=== PATIENT | female | born 1985 | race Caucasian/White ===

== ENCOUNTER 2021-08-04 18:13 | Emergency (ER) | payer OTHER, SELFPAY ==
[2021-08-04 18:20] VITALS: BP 153/108; PULSE 88; RESP 20; TEMP 36.9; O2SAT 100
--- NOTE | 2021-08-04 19:26 | ED.EYEPROB ---
HPI - Eye Problem General Chief complaint: Eye Problems Stated complaint: Eye Pain Time Seen by Provider: 08/04/21 19:07 Source: patient and RN notes reviewed Mode of arrival: ambulatory Limitations: no limitations History of Present Illness HPI Narrative: Patient presents today complaining of right eye photophobia, increased tearing, redness, burning. She woke up yesterday with a foreign body sensation and burning. She believes that she may have an infection from her contact. She does have contacts that she can leave in for 30 days. States her current symptoms are similar to when she had an infection in the past. She currently denies any vision changes, but states she just cannot see because her contacts are not in and she is not wearing her glasses. Denies any purulent discharge. Related Data Allergies Allergy/AdvReac Type Severity Reaction Status Date / Time No Known Allergies Allergy Mild Verified 08/04/21 18:35 Review of Systems Review of Systems: CONSTITUTIONAL: Denies body aches, fever, chills, or sweats. EYES: Denies visual changes, or discharge. + Right eye redness, burning, photophobia, increased tearing ENT: Denies rhinorrhea, congestion, sore throat, or otalgia. CARDIOVASCULAR: Denies chest pain, palpitations, or edema. RESPIRATORY: Denies cough or dyspnea. GASTROINTESTINAL: Denies abdominal pain, nausea, vomiting, or diarrhea. GENITOURINARY: Denies dysuria or hematuria. SKIN: Denies rash, itching, or wounds. MUSCULOSKELETAL: Denies back pain, joint pain, or myalgia. NEUROLOGIC: Denies headache, numbness, tingling, or weakness. PSYCH: Denies depression or anxiety. PMFSH Comments At time of signature, I have reviewed and agree with nursing past medical, surgical, social and family history unless otherwise noted. Please see nursing chart for further information. There is no relevant family history pertinent to the presenting complaint Exam Narrative: GENERAL: Well-appearing, well-nourished, and in no acute distress. HEAD: Normocephalic, atraumatic. EYES: EOMI. PERRL. Right eye: Severely injected conjunctiva. Swollen conjunctiva. No fluorescein uptake. See procedure note. No active drainage, but increased tearing. Left eye normal. ENT: Mucous membranes pink and moist. NECK: Normal AROM. CHEST: No respiratory distress. EXTREMITIES: Normal range of motion. No edema. SKIN: Warm, dry, no rash. Capillary refill normal. Normal skin turgor. NEURO: No focal deficits. Alert and oriented x3. Gait steady. PSYCH: Normal affect. No signs of depression or anxiety. Course Vital Signs Vital signs: Vital Signs Temperature 98.4 F 08/04/21 18:20 Pulse Rate 88 08/04/21 18:20 Respiratory Rate 20 08/04/21 18:20 Blood Pressure 153/108 H 08/04/21 18:20 Pulse Oximetry 100 08/04/21 18:20 Temperature 98.4 F 08/04/21 18:20 Pulse Rate 88 08/04/21 18:20 Respiratory Rate 20 08/04/21 18:20 Blood Pressure 153/108 H 08/04/21 18:20 Pulse Oximetry 100 08/04/21 18:20 Reviewed. Pt has been instructed to follow up with her PCP regarding her elevated blood pressure today. Procedures Other Procedure Procedure 1: Other Procedure: Right eye was anesthetized with 1 drop of tetracaine and anesthesia was achieved. The eye was flushed with eye wash. Lid was inverted and examined. Moistened Qtip was used to sweep underneath the upper eyelid with 0 foreign bodies resulting. Cornea was dyed with fluorescein and 0 abrasions or ulcerations were noted. Pt tolerated procedure well. MDM - Eye Problem Differential Diagnosis Differential diagnosis: Likely corneal abrasion, conjunctivitis, periorbital cellulitis and corneal ulcer Critical Care Time Critical Care Time Critical Care Time: No Discharge Plan Discharge Clinical Impression: Bacterial conjunctivitis Patient Disposition: Home, Self-Care Condition: Stable Instructions: Antibiotic Form Additional Instructions: Your co
== END 2021-08-04 19:43 | disposition home or self-care (01) ==
PROVIDERS: Emergency Provider Nurse Practitioner
DX: H10.9 Unspecified conjunctivitis (principal); I10 Essential (primary) hypertension
CPT/HCPCS: 99213; A9270; G0463

== ENCOUNTER 2022-01-02 17:22 | Emergency (ER) | payer OTHER, SELFPAY ==
[2022-01-02 17:26] VITALS: BP 171/105; PULSE 115; RESP 18; TEMP 36.7; O2SAT 98
--- NOTE | 2022-01-02 17:26 | ED.SKABFB ---
HPI - Skin/Abscess/Foreign Bdy General Chief complaint: Skin/Abscess/Foreign Body Stated complaint: Skin Problem Time Seen by Provider: 01/02/22 17:26 Source: patient and RN notes reviewed History of Present Illness HPI narrative: Patient is a 36-year-old female who presents the urgent care with complaints of an abscess to the left vaginal region. Patient states she noticed it 2 days ago. Patient states that she does shave the vaginal area however has not had issues with labial abscesses in the past. Patient states she has been putting [id number] numbing cream on the area. Denies of any fever, chills, nausea or vomiting. No other complaints. No acute distress noted. Patient aware of the plan of care. Some parts of this dictation were generated by voice recognition software and may contain typographical and/or grammatical inaccuracies. Related Data Allergies Allergy/AdvReac Type Severity Reaction Status Date / Time No Known Allergies Allergy Mild Verified 01/02/22 17:37 Review of Systems Review of Systems: CONSTITUTIONAL: Denies fever, chills, or sweats. EYES: Denies visual changes, redness, or discharge. ENT: Denies rhinorrhea, congestion, sore throat, or otalgia. CARDIOVASCULAR: Denies chest pain, palpitations, or edema. RESPIRATORY: Denies cough or dyspnea. GASTROINTESTINAL: Denies abdominal pain, nausea, vomiting, or diarrhea. GENITOURINARY: Denies dysuria or hematuria. SKIN: Reports of an abscess to the vaginal region MUSCULOSKELETAL: Denies back pain, joint pain, or myalgia. NEUROLOGIC: Denies headache, numbness, or weakness. All other systems reviewed are negative, except as documented in HPI. PMFSH Comments At the time of my signature, I reviewed and agree with the nursing past medical, surgical, social, and family history. There is no relevant family history pertinent to the patient complaint. Exam Narrative: GENERAL: This is a well-nourished, well-developed patient, in no apparent distress. HEAD: normocephalic, atraumatic. EYES: PERRL. Sclera clear/white. Vision is grossly intact. EARS: External ears normal NOSE: External nose normal with no obvious nasal discharge, nares without redness, no rhinorrhea. THROAT: Mucous membranes moist NECK: Neck supple, : 3 x 2 erythemic mildly edematous Bartholin cyst to the left labia with moderate tenderness and scant yellow serosanguineous drainage. SKIN: warm, intact with no suspicious lesions or rash, good texture and turgor. NEURO: awake, alert, and oriented to person, place and time. There were no obvious focal neurologic abnormalities. EXTREMITIES: No clubbing, cyanosis, or edema. Course Course Level of Care: Express Care Visit Vital Signs Vital signs: Vital Signs Temperature 98.1 F 01/02/22 17:26 Pulse Rate 115 H 01/02/22 17:26 Respiratory Rate 18 01/02/22 17:26 Blood Pressure 171/105 H 01/02/22 17:26 Pulse Oximetry 98 01/02/22 17: Temperature 98.1 F 01/02/22 17:26 Pulse Rate 115 H 01/02/22 17:26 Respiratory Rate 18 01/02/22 17:26 Blood Pressure 171/105 H 01/02/22 17:26 Pulse Oximetry 98 01/02/22 17:26 Reviewed-patient is informed that they may have pre-hypertension or hypertension based on a blood pressure reading in the department. I recommend the patient call the primary care provider listed on their discharge instructions or a physician of their choice this week to arrange follow-up for further evaluation of possible pre-hypertension or hypertension. MDM - Skin/Abscess/Foreign Bdy MDM Narrative Medical decision making narrative: Advised the patient to complete the oral antibiotic regimen as prescribed. Be sure to eat and drink with the medication. Use a warm compress. It appears to be draining on its own. Use the prescription cream to the affected area avoiding inside the vagina. Do not use any lidocaine directly over the infectious area. It could cause increased burning sensations. May be warm Epson salt baths.
== END 2022-01-02 17:45 | disposition home or self-care (01) ==
PROVIDERS: Emergency Provider Nurse Practitioner Family
DX: N75.1 Abscess of Bartholin's gland (principal); I10 Essential (primary) hypertension
CPT/HCPCS: 99213; G0463

== ENCOUNTER 2023-07-28 15:57 | Emergency (ER) | payer OTHER, SELFPAY ==
--- NOTE | 2023-07-28 16:03 | ED.EAR ---
HPI - Ear Problem General Chief complaint: Skin/Abscess/Foreign Body Stated complaint: ear pain into jaw Time Seen by Provider: 07/28/23 16:16 Source: patient and RN notes reviewed Mode of arrival: ambulatory Limitations: no limitations History of Present Illness HPI Narrative: 37-year-old female presents with concern for right ear pain and a red tender spot on her right leg. She reports both of these symptoms started this morning. She denies drainage from the ear. She denies upper respiratory infection symptoms. Denies fever, body aches, chills, sweats MD Complaint: ear pain and other (Red spot leg) Related Data Allergies Allergy/AdvReac Type Severity Reaction Status Date / Time No Known Allergies Allergy Mild Verified 07/28/23 16:18 Review of Systems Review of Systems: CONSTITUTIONAL: Denies malaise, chills, sweats, or fever. EYES: Denies visual changes, redness, or discharge. ENT: Denies rhinorrhea, congestion, sinus pain, and sore throat. Reports right ear pain CARDIOVASCULAR: Denies chest pain, palpitations, or edema. RESPIRATORY: Denies cough. Denies dyspnea. GASTROINTESTINAL: Denies abdominal pain, nausea, vomiting, diarrhea SKIN: Denies rash or itching. Reports red tender area on the right leg MUSCULOSKELETAL: Denies myalgia. NEUROLOGIC: Denies headache. All systems reviewed & are unremarkable except as noted in HPI and below PMFSH Comments At time of signature, agree with nursing past medical, surgical, social and family history. There is no relevant family history pertinent to the presenting complaint Exam Narrative: GENERAL: Well-appearing, well-nourished, and in no acute distress. HEAD: Normocephalic EYES: PERRLA, conjunctivae clear ENT: Nares clear, turbinates edematous, clear discharge. Mucous membranes moist. TM pearly eldridge with sharp light reflex bilaterally; right tragal tenderness with EAC erythema and edema. No postauricular erythema, edema noted. NECK: Supple. No lymphadenopathy CHEST: Clear to auscultation, breath sounds equal. No wheezing, rhonchi, rales, or stridor. No respiratory distress, speaks in full sentences. HEART: Regular rate and rhythm. No murmur heard. SKIN: Warm, dry, no rash. Approximately 4 cm in diameter area of erythema, edema, induration without fluctuation noted to the right thigh NEURO: Alert and oriented x3. PSYCH: Normal mood and affect Course Course Emergency Course: Patient is aware of diagnosis, understands and agrees to treatment plan. Anticipatory guidance given. Patient agrees to follow-up as directed and is aware of reasons to seek care at the emergency department. Portions of this record may have been created with voice recognition software Level of Care: Express Care Visit Vital Signs Vital signs: Reviewed. Medical Decision Making MDM Narrative Medical decision making narrative: Differential diagnosis considered: Lee virus, strep pharyngitis, allergic rhinitis, upper respiratory tract infection, sinusitis, rhinosinusitis, nasopharyngitis. viral pharyngitis, otitis media, otitis externa, otitis effusion, cerumen impaction, foreign body, mastoiditis. Exam findings show no acute concerns or changes; patient is non-toxic appearing and is in no distress. Patient is appropriate for outpatient treatment and follow-up. Patient's symptoms are not at this time consistent with mastoiditis, however given the postauricular pain patient was advised to follow-up with her primary or go to the ER symptoms worsen or do not improve Does not appear at this time to be erythema multiforme, bullous, SJS, TEN; no evidence at this time to suggest RMSF, NSTI, endocarditis or Lyme disease; patient looks well, nontoxic and is tolerating oral intake; no neurologic signs or symptoms; no headache, photophobia or neck pain; afebrile. Patient does not have history of of penetrating trauma, laceration, blunt trauma, recent surgery, immunosuppression, malignancy, obesity, alcoholism,
[2023-07-28 16:06] VITALS: BP 137/104; PULSE 106; RESP 18; TEMP 37.7; O2SAT 100
[2023-07-28 16:30] VITALS: BP 130/90
== END 2023-07-28 16:30 | disposition home or self-care (01) ==
PROVIDERS: Emergency Provider Nurse Practitioner; PCP Nurse Practitioner Family
DX: H66.91 Otitis media, unspecified, right ear (principal); L03.115 Cellulitis of right lower limb; I10 Essential (primary) hypertension; H26.9 Unspecified cataract
CPT/HCPCS: 99213; G0463

== ENCOUNTER 2025-03-08 19:57 | Emergency (ER) | payer OTHER, SELFPAY ==
--- OUTSIDE RECORDS SUMMARY | 2025-03-08 19:59 | XMS_ITS | Referral Summary ---
Author Organization [facility] Address [address] [place] [address] Care Team Providers Care Canal Superintendent Name Role Phone Unknown, Notinfile Primary Care Provider Unavail able Kesha Stock NATIONAL SALES REPRESENTATIVE Unavailable [phone] Encounters Date Type Department Care Team Description 12/12/2024 Telephone [facility] Ophthalmology [address] [place] [phone] Mey Steele MD 12/12/2024 2:40 PM CDT Office Visit [facility] Ophthalmology [address] [place] [phone] Mey Steele MD Other secondary cataract of both eyes; Posterior subcapsular age-related cataract from Last 3 Months Allergies No known active allergies Medications prednisoLONE acetate (PRED FORTE) 1 % ophthalmic suspension Administer 1 drop into the right eye 4 (four) times a day 5 mL 11 3 Active Active Problems Problem Noted Date Diagnosed Date Right retinal detachment 03/11/2023 Assessment & Plan (06/16/2023 1:36 PM CDT): One week status post pars plana vitrectomy (PPV)/endolaser (EL)/Gas to the right eye. Doing well. Shield operated eye, Tobramycin 4x/day, and Predforte 4x/day Return to clinic in one week. Signs and symptoms of retinal detachment, tears and endophthalmitis, elevated pressure reviewed with patient. Post Op Position:Left side down. Altitude precautions were reviewed with patient. No strenuous activity. Heroin use disorder, severe 03/10/2023 06/0 04/2023 Obesity (BMI 30.0-34.9) 03/10/2023 03/10/20 Bilateral retinal detachment 03/03/2023 Overview (03/03/2023): -Onset blurry vision OS>OD ~4 years ago -History of drug use, attended rehab and noticed blurry vision upon completion -OCT mac obtained today- mac off RD OU -Pt denies any active symptoms including FOL or new floaters Assessment & Plan (05/31/2024 5:09 PM CDT): S/p PPV/EL/FAx/C3F8 OS 04/16/23 S/p PPV/EL/FAx/C3F8 OD 06/10/23 LTFU since 06/2023. Retina attached OU with good laser scars. Has significant PSC OS > OD and interested in CE. Will send for eval, discussed possible limited visual potential given hx of RD. Assessment & Plan (06/11/2023 12:13 PM CDT): Status post (s/p) pars plana vitrectomy (PPV) laser gas doing well POD 1 Drops (gtts) instructions given ER warnings Assessment & Plan (06/09/2023 4:03 PM CDT): POM1 left eye (OS) pars plana vitrectomy (PPV)/ endolaser (EL)/ Gas- doing well, attached 360. Right eye (OD): More bullous with prominent macula involvement. No clear breaks identified. She had macula involvement when we first saw her as well per OCT from 03/03/23. Will schedule for: Right Eye: Pars plana vitrectomy (PPV)/ endolaser (EL)/ Gas Nita/Therese 90 minutes [place] General Assessment & Plan (04/21/2023 4:49 PM CDT): One week status post pars plana vitrectomy (PPV)/ endolaser (EL)/ 14% C3F8 to the left eye. Doing well. Shield operated eye, Stop Tobramycin, and Taper pred forte (PF) by reducing it by one drop a day each week Return to clinic in one month. Signs and symptoms of retinal detachment, tears and endophthalmitis, elevated pressure reviewed with patient. Post Op Position:Face Down. Altitude precautions were reviewed with patient. No strenuous activity. Assessment & Plan (04/17/2023 10:22 AM CDT): One day status post pars plana vitrectomy (PPV)/ endolaser (EL)/ 14% C3F8 to the left eye. Doing well. Shield operated eye, Tobramycin 4x/day, and Predforte 4x/day Return to clinic in one week. Signs and symptoms of retinal detachment, tears and endophthalmitis, elevated pressure reviewed with patient. Post Op Position:Face Down. Altitude precautions were reviewed with patient. No strenuous activity. Assessment & Plan (03/10/2023 4:02 PM CDT): Bilateral retinal detachment (RD) both eyes (OU)--> right eye (OD) mac-involving but better vision, left eye (OS) near total retinal detachment (RD) with worse vision. Unclear how long this has been present for- patient feels things got really bad in last 6 months. No clear breaks identified both eyes (OU), though possibly small hole right eye (OD). No inflammation on exam to think exudative process, no other medical conditions other than HTN, and history apppears unremarkable for uveitic process. Likely myopic, though no lattice on exam, but patient wears contacts but she is unsure her prescription. No mass on exam both eyes (OU) on b-scan as well. We will schedule for: Right eye first (pt preference plus better vision) pars plana vitrectomy (PPV)/ Scleral buckle/ endolaser/ Gas vs. Oil Moya/ Attending (ad or tung) 120 minutes General [place] Assessment & Plan (03/03/2023 11:01 AM CDT): Educated patient. Discussed guarded prognosis for vision following repair due to chronicity. Consulted Dr. Moya (retina fellow), schedule pt in [facility] next Saturday 03/10. Posterior subcapsular age-related cataract 03/03 Assessment & Plan (12/12/2024 6:47 PM CDT): >>ASSESSMENT AND PLAN FOR SECONDARY CATARACT WRITTEN ON 03/03/2023 11:01 AM BY SOLOMON DAVIS, OD Educated patient, will further evaluate following retina consult/treatment. Assessment & Plan (12/12/2024 6:59 PM CDT): Cataract Pre-Op Note HPI: Nancy Mckinney is a 39 y.o. y/o female who presents for cataract evaluation. They have noticed progressive loss of vision over the last few years, and feel that surgery would help enhance vision & quality of life. Ocular ROS: Glare Yes Halos No Trouble driving Yes - does not drive Trouble reading Yes All other ROS negative unless noted in HPI. Active ocular issues: S/p PPV/EL/FAx/C3F8 OS 04/16/23 S/p PPV/EL/FAx/C3F8 OD 06/10/23 Ocular History: Amblyopia Unknown - left eye was weaker eye as a child, does not recall patching or age at which she started wearing glasses Vitrectomy Yes Scleral buckle No Intravitreal Injections No Laser refractive surgery No History of ocular trauma No History of eye infection No Medical History: Past Medical History: Diagnosis Date Migraines Obesity Tobacco dependence Medical ROS: Angina present? No Cough or orthopnea? No Dyspnea on exertion? No Has sleep apnea/wears CPAP? No Patient is able to lie flat for at least 1 hour Yes Current medications: Systemic medications per EMR Flowmax/Hytrin No Coumadin/Plavix No Allergies: No Known Allergies Latex allergy: No Cataract specific exam findings: Prominent brow No Dense arcus No K spindle No [place]e No PXE material No TIDs No Phacodonesis No Posterior synechiae No L/I step off No Mature/white No Dominant Eye: the right eye Dilates to: OD 8 mm OS 8 mm Tolerates gonioscopy: good Assessment and Plan 1. Visually Significant Cataract of both eyes - Patient interested in having CE/IOL of the left eye - R/B/A of surgery discussed with patient and/or presented in writing, including complications that may require additional surgeries or other procedures such as retained lens fragment, inability to place a lens implant at the time of surgery, prolonged inflammation, macular edema, corneal edema/decompensation, intraocular pressure abnormalities, diplopia, ptosis. Reviewed possible complications that might result in permanent loss of vision or the eye, including infection, hemorrhage, and retinal tear/detachment. Reviewed risks of anesthesia. - Additional risks discussed included: very limited vision potential due to bilateral retinal detachments. Notable difference in axial length of both eyes, possible history of amblyopia though patient recalls left eye was weaker as a child and left eye is less myopic on today's measurements. She is currently unable to do much of her daily tasks due to her vision, even with contact lens wear. - The patient understands these risks and wishes to proceed. - Target refraction was discussed with the patient. We discussed near, distance, and monovision; we also discussed multifocal and toric lenses. The patient elected to target plano, monofocal. - Best phone number at which to reach patient: [phone] - Patient was wearing her contact lenses to appointment today. Will need to return for testing-only visit after 5 day contact lens holiday. Will schedule surgery following that visit. Acute conjunctivitis of both eyes 10/14/2019 Lacrimation, bilateral 10/14/2019 Acute bronchitis 10/25/2017 Acute maxillary sinusitis 10/25/2017 Acute bronchospasm 10/25/2017 Anxiety 11/05/2016 03/10/2023 Common bile duct dilatation 11/05/2016 06/04/2023 Heroin addiction 11/05/2016 03/10/2023 VAZQUEZ (nonalcoholic steatohepatitis) 11/05/2016 03/10/2023 Immunizations Immunization Administration Dates Next Due Influenza, Trivalent, IM (MDV) 07/23/2014 Social History Tobacco Use Types Packs/Day Years Used Date Smoking Tobacco: Every Day Cigarettes 1 21.4 Started: 2003 Smokeless Tobacco: Never Tobacco Cessation:Ready to Q uit: Not Asked; Counseling Given: Not Answered Alcohol Use Standard Drinks/Week Comments Never 0 (1 standard drink = 0.6 oz pur e alcohol) AUDIT-C Answer Date Recorded Frequency of Alcohol Consumption Never 10/14/2019 Average Number of Drinks Not on file 020 Frequency of Binge Drinking Not on file 10/04 Personal Safety Answer Date Recorded Have you ever been in or are you currently in a harmful physical or emotional relationship or is someone making you feel afraid or unsafe? 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 Gender Identity Not on file Sexual Orientation Not on file Last Filed Vital Signs Vital Sign Reading Time Taken Comments Blood Pressure 125/101 06/08/2024 11:30 PM CDT Pulse 79 06/08/2024 11:30 PM CDT Temperature 36.6 C (97.8 F) 06/08/2024 9:16 PM CDT Respiratory Rate 18 06/08/2024 11:30 PM CDT Oxygen Saturation 100% 06/08/2024 11:30 PM CDT Inhaled Oxygen Concentration - - Weight 88.9 kg (196 lb) 06/08/2024 9:16 PM CDT Height 162.6 cm (5' 4) 03/11/2023 10:15 AM CDT Body Mass Index 33.64 03/11/2023 10:15 AM CDT Plan of Treatment Not on file Procedures Procedure Name Priority Date/Time Associated Diagnosis Comments IOL BIOMETRY - OU - BOTH EYES Routine 12/12/2024 2:40 PM CDT Other secondary cataract of both eyes from Last 3 Months Results * IOL Biometry - OU - Both Eyes (12/12/2024 2:40 PM CDT) Anatomical Region Laterality Modality Head Ophthalmic Axial Measurements Narrative 01/04/2025 11:43 AM CDT Will repeat follow contact lens holiday Mey Steele MD OPHTH ULTRASOUND Fi nal Result from Last 3 Months Insurance [facility] Member Subscriber Plan / Payer (Ef fective 2019-Present) Name:Nancy Mckinney Relation to Subscriber:Self Name:Nancy Mckinney Payer ID:[id number] (NAIC) Type:MEDICAID RISK OTHER Address: [address] [place] [id number] [facility] Member Subscriber Plan / Payer (Ef fective 2021-Present) Name:Nancy Mckinney Relation to Subscriber:Self Name:Nancy Mckinney Payer ID:[id number] (NAIC) Type:MEDICAID RISK OTHER Address: [address] [place] [id number] [facility] Member Subscriber Plan / Payer (Ef fective 2021-Present) Name:Nancy Mckinney Relation to Subscriber:Self Name:Nancy Mckinney Payer ID:[id number] (NAIC) Type:MEDICAID RISK OTHER Address: [address] [place] [id number] Care Teams Canal Superintendent Relationship Specialty Start Date End Date Unknown, Notinfile PCP - General 06/08/24 Kesha Stock NP [phone] [place] [address] Nurse Practitioner 06/08/24
--- OUTSIDE RECORDS SUMMARY | 2025-03-08 19:59 | XMS_ITS | Clinical Summary ---
Author Organization [facility] Address [address] [place] [address] Care Team Providers Care Hand Model Name Role Phone Unavailable Primary Care Provider Unavailabl e Source Comments [facility],non-owned Affiliates and Associated Physician Practices is amultiple site organization consisting of ambulatory clinics and hospital sitesin [place], [place], [place] and [place]. This disclosure is being madepursuant to the Care Everywhere program and may not contain all information available regarding this patient. Last updated 18.[facility] Social History Tobacco Use Types Packs/Day Years Used Date Smoking Tobacco: Never Assessed Comments Unknown Sex and Gender Information Value Date Recorded Sex Assigned at Not on file Legal Sex Female 7:57 AM ELECTRICAL LINEWORKER Gender Identity Not on file Sexual Orientation Not on file Last Filed Vital Signs Vital Sign Reading Time Taken Comments Blood Pressure 138/102 11/06/2016 12:10 PM ELECTRICAL LINEWORKER Pulse 58 11/06/2016 12:10 PM ELECTRICAL LINEWORKER Temperature 36.4 C (97.6 F) 11/06/2016 12:10 PM ELECTRICAL LINEWORKER Respiratory Rate 18 11/06/2016 12:10 PM ELECTRICAL LINEWORKER Oxygen Saturation 100% 11/06/2016 12:10 PM ELECTRICAL LINEWORKER Inhaled Oxygen Concentration - - Weight 93 kg (205 lb) 11/05/2016 10:03 PM ELECTRICAL LINEWORKER Height 162.6 cm (5' 4) 11/05/2016 10:03 PM ELECTRICAL LINEWORKER Body Mass Index 35.19 11/05/2016 10:03 PM ELECTRICAL LINEWORKER Plan of Treatment Health Maintenance Due Date Last Done Comments HIV SCREENING 2001 HEPATITIS C SCREENING 08/21/2004 DTAP/TDAP/TD VACCINES (1 - Tdap) 2005 HEPATITIS B VACCINE (1 of 3 - 19+ 3-dose series) 2005 COVID-19 VACCINE (1 - 2023-2 5 season) 2024 DEPRESSION SCREENING 10/04/2024 INFLUENZA VACCINE (Season Ended) 2025 ZOSTER VACCINE (1 of 2) 2036 HIB VACCINE Aged Out No longer eligi ble based on patient's age to complete this topic HPV VACCINE Aged Out No longer eligi ble based on patient's age to complete this topic MENINGOCOCCAL (Group B) VACC INE SHARED DECISION-MAKING Aged Out No longer eligibl e based on patient's age to complete this topic MENINGOCOCCAL GROUPS A/C/Y/W VACCINE Aged Out No longer eligible b ased on patient's age to complete this topic PNEUMOCOCCAL VACCINE Aged Out No long er eligible based on patient's age to complete this topic Insurance [facility] [place] [address] [place] [address] MEDICAID - OUT OF [facility]
--- OUTSIDE RECORDS SUMMARY | 2025-03-08 19:59 | XMS_ITS | Clinical Summary ---
Author Organization [facility] Address [address] [place] [address] Care Team Providers Care Manager Law Name Role Phone Unknown, Notinfile Primary Care Provider Unavail able Kesah Stock QUALITY CONTROL CHEMIST Unavailable [phone] Allergies No known active allergies Medications prednisoLONE [...] 06/0 04/2023 Obesity (BMI 30.0-34.9) 03/10/2023 03/10/20 23 Bilateral retinal detachment 03/03/2023 Overview (03/03/2023): -Onset [...] Pars plana vitrectomy (PPV)/ endolaser (EL)/ Gas Nita/Apte 90 minutes Phakic General Assessment & Plan [...] (PPV)/ Scleral buckle/ endolaser/ Gas vs. Oil Nita/ Attending (ad or tung) 120 minutes General Phakic Assessment & Plan (03/03/2023 11:01 AM CDT): Educated patient. Discussed guarded prognosis for vision following repair due to chronicity. Consulted Dr. Moya (retina fellow), schedule pt in [facility] next Saturday 03/10. 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-related cataract 12/12/2024 Telephone [facility] Ophthalmology [address] [place] [address] [phone] Mey Steele MD from Last 3 Months Immunizations Immunization Administration Dates Next Due Influenza, Trivalent, IM (MDV) 07/23/2014 Surgical History Surgery Date Site/Laterality Comments TUBAL LIGATION 10/04/2011 - 10/03/2012 Bilateral VITRECTOMY 04/15/2023 Left Medical History Medical History Date Comments Tobacco dependence Obesity Migraines Family History Medical History Relation Name Comments Heart disease Mother Relation Name Status Comments Mother Social History Tobacco Use Types Packs/Day Years [...] on file Legal 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 Gender Identity Not on file Sexual Orientation Not on file Obstetrics History Para Term AB IAB SAB Ectopic Multiple Livin g Live Births 1 Date Outcome GA Total Labor Labor/2nd/3rd Weight Sex Type Anes PTL Kelsey A1 A5 Name Clin Last Filed Vital Signs Vital Sign Reading [...] 03/11/2023 10:15 AM CDT Plan of Treatment Health Maintenance Due Date Last Done Comments Cervical Cancer Screening 1986 Depression Screening 1986 Hepatitis C Screening 1986 DTaP/Tdap/Td Vaccine (1 - Tdap) 1997 Varicella Vaccines (1 of 2 - 13+ 2-dose series) 1999 Hepatitis B Screening 2004 Regular Well Visit/Exam 18-64 2004 Pneumococcal vaccine <65 (1 of 2 - PCV) 2005 Influenza Vaccine (Season Ended) 2025 10/21/2022, 07/23/2014 HPV Vaccines Aged Out No longer eligi ble based on patient's age to complete this topic Procedures Procedure Name Priority Date/Time Associated Diagnosis [...] nal Result from Last 3 Months Insurance [facility] Care Teams Manager Law Relationship Specialty Start Date End Date Unknown, Notinfile PCP - General 06/08/24 Kesha Stock NP [address] [place] [id number] Nurse Practitioner 06/08/24
--- OUTSIDE RECORDS SUMMARY | 2025-03-08 19:59 | XMS_ITS | Clinical Summary ---
Author Organization [facility] Address [address] [place] [address] Phone Care Team Providers Care Middle [employer] French Teacher Name Role Phone Kesha Stock APRN, [employer] Unavailable [phone] Provider, None Primary Care Provider Unavailabl e Allergies No known active allergies Medications nicotine (NICODERM CQ) 14 MG/24HR PATCH 24 HR 1 Patch by Transdermal route every 24 hours. 30 Patch 3 Active atenolol (TENORMIN) 50 MG Tablet Take 1 Tablet by mouth daily. 90 Tablet 3 3 Active traMADol (ULTRAM) 50 MG TabletIndicatio ns:Contusion of left thumb Take 1 Tablet by mouth every 8 hours as needed for Moderate or more severe pain. 12 Tablet 4 Active dexamethasone (Decadron) 4 MG Tablet Take 1 Tablet by mouth 2 times daily. 10 Tablet 5 Active Benzonatate 200 MG Capsule Take 1 Capsule by mouth 3 times daily as needed for Cough for up to 14 days. 42 Capsule 5 02/28/20 25 Active Problems Problem Noted Date Diagnosed Date Common bile duct dilatation 11/05/2016 Anxiety 11/05/2016 VAZQUEZ (nonalcoholic steatohepatitis) 11/05/2016 Heroin addiction 11/05/2016 Resolved Problems Problem Noted Date Diagnosed Date Resolved Date Sepsis (<HCC>) 11/05/2016 10/21/2022 Left arm cellulitis 11/05/2016 10/21/19 23 Fatty liver 11/05/2016 11/05/2016 Hypokalemia 11/05/2016 10/21/2022 Encounters Date Type Department Care Team Description 02/13/2025 10:30 PM CDT - 02/13/2025 10:52 PM CDT Emergency [facility] Emergency [address] [facility] [place] [address] Pasha Rodriguez, PAC COVID-19 Discharge Disposition: Discharged to home or Selfcare 02/13/2025 Travel from Last 3 Months Immunizations Immunization Administration Dates Next Due Influenza Vaccine, Quadrivalent, PF 10/21/2022 Family History Medical History Relation Name Comments Hypertension Brother Hypertension Father Relation Name Status Comments Brother Father Social History Tobacco Use Types Packs/Day Years Used Date Smoking Tobacco: Every Day Cigarettes 1 8 Smokeless Tobacco: Never Tobacco Cessation:Ready to Q uit: No; Counseling Given: No Alcohol Use Standard Drinks/Week Comments No 0 (1 standard drink = 0.6 oz pur e alcohol) Comments No Sex and Gender Information Value Date Recorded Sex Assigned at Female 09/19/2024 7:10 PM MEDIA EXECUTIVE Legal Sex Female 9:55 PM CDT Gender Identity Female 09/19/2024 7:10 PM MEDIA EXECUTIVE Sexual Orientation Not on file Last Filed Vital Signs Vital Sign Reading Time Taken Comments Blood Pressure 132/99 02/13/2025 10:46 PM CDT Pulse 110 02/13/2025 10:46 PM CDT Temperature 38.8 C (101.9 F) 02/13/2025 10:46 PM CDT Respiratory Rate 20 02/13/2025 10:46 PM CDT Oxygen Saturation 99% 02/13/2025 10:46 PM CDT Inhaled Oxygen Concentration - - Weight 95.3 kg (210 lb) 02/13/2025 9:22 PM CDT Height 162.6 cm (5' 4) 02/13/2025 9:22 PM CDT Body Mass Index 36.05 02/13/2025 9:22 PM CDT Plan of Treatment Health Maintenance Due Date Last Done Comments Hepatitis C Virus (HCV) Screening 1986 TdaP Immunization 1986 Hepatitis B Immunization (1 of 3 - 19+ 3-dose series) 2005 Pneumococcal Immunization Combined (1 of 2 - PCV) 2005 HPV/Cotest 2016 SARS-COV-2 Immunization ( - 2023- season) 2024 Influenza Immunization (Seas on Ended) 2025 10/21/2022, 07/23/2014, 08/14/2011 Cervical Cancer Screening (CCS) 11/25/2025 Pap Smear 11/25/2025 11/25/2022 Respiratory Syncytial Virus (RSV) Immunization (Adult) (1 - 1-dose 75+ series) 2061 Human Papillomavirus (HPV) Immunization Aged Out No longer eligible b ased on patient's age to complete this topic Meningococcal Immunization (ACWY) Aged Out No longer eligible b ased on patient's age to complete this topic Rotavirus Immunization Aged Out No lo nger eligible based on patient's age to complete this topic Procedures Procedure Name Priority Date/Time Associated Diagnosis Comments RSV,SARS-COV-2,INF LUENZA A&B BY PCR STAT 02/13/2025 9:28 PM CDT PATHOLOGY CYTOLOGY ELEMENTARY SCHOOL LIBRARIAN Routine 11/25/2022 4:16 PM MEDIA EXECUTIVE Well woman exam with routine gynecological exam from Last 3 Months or Most Recently Relevant to Health Maintenance Results * (ABNORMAL) RSV,SARS-COV-2,INFLUENZA A&B BY PCR (02/13/2025 9:28 PM CDT) FLU A Negative Negative, Error 02/13/2025 10:27 PM CDT [facility] FLU B Negative Negative 02/13/2025 10:27 PM CDT [facility] RESP SYNC VIRUS Negative Negative 02/13/2025 10:27 PM CDT [facility] SARSCOV2 DETECTED(A) (Reference Range for this test is Not Detected) 02/13/2025 10:27 PM CDT [facility] Swab NASOPHARYNGEAL WASHINGS / Unknown Non-Phlebotomy Collection / Unknown 02/13/2025 9:28 PM CDT 02/13/2025 9:47 PM CDT us Refugio Young MD MICROBIOLOGY - GENERAL ORDERABLES Final Result [facility] [address] [place] [address] * PATHOLOGY CYTOLOGY ELEMENTARY SCHOOL LIBRARIAN (11/25/2022 4:16 PM MEDIA EXECUTIVE) SPECIMEN ADEQUACY Satisfactory for evaluation. Endocervical/trans formation zone component is absent. 12/06/2022 5:38 AM MEDIA EXECUTIVE [facility] GENERAL CATEGORY EPITHELIAL CELL ABNORMALITY. 12/06/2022 5:38 AM MEDIA EXECUTIVE [facility] DESCRIPTIVE DIAGNOSIS Low grade squamous intraepithelial lesion. 12/06/2022 5:38 AM MEDIA EXECUTIVE [facility] at 0537 MEDIA EXECUTIVE RECOMMENDATION Colposcopy and/or biopsy suggested. 12/06/2022 5:38 AM MEDIA EXECUTIVE [facility] Automated Examination Analysis of this sample has been assisted by an automated imaging and review system ([employer] System, [employer], [place], [place]). The case is further evaluated and finalized by a opener verifier packer customs and/or pathologist. 12/06/2022 5:38 AM [facility] Disclaimer The PAP smear is a screening test designed to detect cancerous or precancerous cells of the uterine cervix. It is one of the best means available for detection of cervical cancer but still carries an inherent false-negative rate. The consequences of a false-negative PAP result can be minimized by adhering to current screening guidelines. The following are general guidelines recommended by the ACS, ASCP, ASCCP, and ACOG: PAP testing is recommended every three years for women 21-29, Co-Testing, a PAP test in conjunction with an HPV (Human Papillomavirus) test for women ages 30-65, and no PAP or HPV testing for women under the age of 21 or older than 65 unless clinically indicated. 12/06/2022 5:38 AM [facility] Other SPECIMEN FROM CERVIX OR VAGINA / Unknown Non-Phlebotomy Collection / Unknown 11/25/2022 4:16 PM MEDIA EXECUTIVE 11/25/2022 4:16 PM MEDIA EXECUTIVE us Kesha Stock APRN, [facility] PATHOLOGY/CYTOLOGY ARNULFO KEANE Final Result [facility] [address] [place] [address], [place] from Last 3 Months or Most Recently Relevant to Health Maintenance Insurance MEDICAID [facility] Advance Directives * Full Code (Latest Code Status on File) Date Activated Date Inactivated Comments 11/05/2016 8:50 AM 11/05/2016 10:23 PM CPR-Full Ellen tment: FULL ARREST: Attempt Resuscitation/CPR wit intubation and mechanical ventilation. PRE-ARREST: Use entire range of life support measures to stabilize the patient. Care Teams Middle [employer] French Teacher Relationship Specialty Start Date End Date Provider, None [place] PCP - General 02/13/25 Kesha Stock APRN, [facility] [address] [place] [address] Nurse Practitioner Advanced Practice Nurse 02/13/25
--- OUTSIDE RECORDS SUMMARY | 2025-03-08 19:59 | XMS_ITS | Patient Health Record ---
Author Organization [facility] Address [address] [place] [address] Care Team Providers Care Guide Dog Trainer Name Role Phone Joey Young Primary Care Provider [phone] Reason For Referral No Information Medications Medication SIG (Take, Route, Frequency, Duration) Notes Start Date End Date Status CeleXA 10 MG 1 tablet Orally Once a day for 30 days out for 2 weeks Active Gabapentin 300 MG 1 capsule before bedtime Orally Three times a day for 30 days out for 2 weeks Active Naltrexone HCl 50 MG 1 tablet Orally Onc e a day for 14 days 10/19/2017 Active Vivitrol 380 MG 4 ml Intramuscular every 4 weeks for 28 days 10/19/2017 Active Social History Tobacco Use: Social History Observation Description Date Details (start date - stop date) Current Smoker NA - NA Dont use, Tobacco Use/Smoking Question Answer Notes Are you a current smoker How often do you smoke cigarettes? every day How many cigarettes a day do you smoke? 21-30 How soon after you wake up d o you smoke your first cigarette? within 5 minutes Are you interested in quitting? Not ready to alexandro t Additional Findings: Tobacco User Heavy cigarett e smoker (20-39 cigs/day) Problems Problem Type SNOMED Code ICD Code Onset Dates Problem Status W/U Status Risk Notes Problem [id number] Obesity (BMI 30.0-34.9) (E66.9) Active confirmed Problem 0923747 Heroin use disorder, severe (F11.20) Active confirmed Plan Of Treatment No Information Insurance Providers Payer Name Payer Address Payer Phone Subscriber Number Group Number Insured Name Patient Relationship to Insured Coverage Start Date Coverage End Date [facility] Claims Department [address] [facility] [place] [address] [phone] [id number] Nancy Mckinney Self - patient is the insured 8 [employer] OFFICER Attn Claims Department [address] [place] [address] [phone] [id number] Nancy Mckinney Self - patient is the insured 8 Medical (General) History Medical History History ICD Code Depression Anxiety
[2025-03-08 20:06] VITALS: BP 155/106; PULSE 97; RESP 16; TEMP 36.1; O2SAT 100
--- NOTE | 2025-03-08 20:22 | ED.SKABFB ---
HPI - Skin/Abscess/Foreign Bdy General Chief complaint: Skin/Abscess/Foreign Body Stated complaint: Bug Bite on Neck Time Seen by Provider: 03/08/25 20:00 Source: patient and RN notes reviewed Mode of arrival: ambulatory Limitations: no limitations History of Present Illness HPI narrative: 39-year-old female presents Express Care complaining of bug bites to her neck. States she woke up this morning notice to bug bites on her neck. Patient is unsure what bit her stated occurred while she was sleeping. Patient reports that occult blood bites or swollen and itchy with discharge present. Patient denies any pain, breathing problems, fevers body aches, chills, nausea, vomiting, or any other symptoms. Patient has not used anything [id number] to help with her symptoms. Related Data Allergies Allergy/AdvReac Type Severity Reaction Status Date / Time No Known Allergies Allergy Mild Verified 03/08/25 20:03 Review of Systems Review of Systems: CONSTITUTIONAL: Denies fever, chills, or sweats. EYES: Denies visual changes, redness, or discharge. ENT: Denies rhinorrhea, congestion, sore throat, or otalgia. CARDIOVASCULAR: Denies chest pain, palpitations, or edema. RESPIRATORY: Denies cough or dyspnea. GASTROINTESTINAL: Denies abdominal pain, nausea, vomiting, or diarrhea. GENITOURINARY: Denies dysuria or hematuria. SKIN: Denies rash. Positive for bug bites and itchiness. MUSCULOSKELETAL: Denies back pain, joint pain, or myalgia. NEUROLOGIC: Denies headache, numbness, or weakness. PSYCHIATRIC: Denies anxiety or depression. All other systems reviewed are negative, except as documented in HPI. PMFSH Comments At the time of my signature, I reviewed and agree with the nursing past medical, surgical, social, and family history. There is no relevant family history pertinent to the patient complaint. Exam Narrative: GENERAL: This is a well-nourished, well-developed adult, in no apparent distress. They are non ill-appearing, nontoxic appearing. HEAD: normocephalic, atraumatic. EYES: Sclera clear/white. Conjunctiva normal. Vision is grossly intact. Extraocular movements intact EARS: External ears normal, Hearing grossly intact. NOSE: External nose normal THROAT: Mucous membranes moist NECK: Neck supple CARDIOVASCULAR: Regular rate and rhythm RESPIRATORY: Respiratory rate normal, respiratory effort nonlabored, no respiratory distress GASTROINTESTINAL: Abdomen soft, non-tender, nondistended. Bowel sounds are active. No hepato-splenomegaly, or palpable masses. No guarding. SKIN: Two puncture wounds that are erythematous with scabs located on the right distal lower neck and left upper lateral neck. They are both measuring approximately 1 cm x 1 cm. Induration surrounding the wounds. No area of fluctuance or tenderness to palpation. NEURO: awake, alert, and oriented to person, place and time. There were no obvious focal neurologic abnormalities. EXTREMITIES: No joint tenderness, effusion, or edema noted. Course Course Emergency Course: Portions of this record may have been created with voice recognition software Level of Care: Express Care Visit Vital Signs Vital signs: Vital Signs Temperature 96.9 F L 03/08/25 20:06 Pulse Rate 97 03/08/25 20:06 Respiratory Rate 16 03/08/25 20:06 Blood Pressure 155/106 H 03/08/25 20:06 Pulse Oximetry 100 03/08/25 20:06 Oxygen Delivery Room Air 03/08/25 20:06 Temperature 96.9 F L 03/08/25 20:06 Pulse Rate 97 03/08/25 20:06 Respiratory Rate 16 03/08/25 20:06 Blood Pressure 155/106 H 03/08/25 20:06 Pulse Oximetry 100 03/08/25 20:06 Oxygen Delivery Room Air 03/08/25 20:06 Reviewed MDM - Skin/Abscess/Foreign Bdy MDM Narrative Medical decision making narrative: Likely patient has allergic reaction to bug bite. However given the induration will go ahead and treat for infection with cephalexin. No evidence of abscess formation. Discussed physical exam findings. Advised supportive measures and signs/symptoms to go to the ER. Pt is appropriate for outpt treatment and f/u. Differential Diagnosis Differential diagnosis: Likely cellulitis, insect bites and contact dermatitis Critical Care Time Critical Care Time Critical Care Time: No Discharge Plan Discharge Clinical Impression: Bug bite Qualifiers: Encounter type: initial encounter Qualified Code(s): W57.XXXA - Bitten or stung by nonvenomous insect and other nonvenomous arthropods, initial encounter Patient Disposition: Home Condition: Stable Instructions: Antibiotic Form, Insect Bite or Sting (ED) Additional Instructions: Clean with soap and water only; Avoid using alcohol and peroxide. You may use hydrocortisone cream as needed for itchiness. You may take Tylenol and ibuprofen as needed for pain. Take antibiotic until it's gone. Please schedule a follow up visit with your personal physician for further evaluation and treatment within 3-5days If you develop any worsening swelling, redness, discharge, fevers, difficulty breathing, or any other concerns Patient Language: Salvadorean Prescriptions: New cephalexin 500 mg capsule 500 mg PO Q6H 7 Days Qty: 28 0RF Follow-up/Referrals: UNKNOWN,DOCTOR [Primary Care Provider] - Time of Disposition: 20:12
== END 2025-03-08 20:15 | disposition home or self-care (01) ==
DX: S10.96XA Insect bite of unspecified part of neck, initial encounter (principal); W57.XXXA Bitten or stung by nonvenomous insect and other nonvenomous arthropods, initial encounter
CPT/HCPCS: 99213; G0463

== ENCOUNTER 2025-05-13 14:50 | Emergency (ER) | payer OTHER, SELFPAY ==
--- OUTSIDE RECORDS SUMMARY | 2025-05-13 14:51 | XMS_ITS | Patient Health Record ---
Author Organization [facility] Address [address] [place] [address] Care Team Providers Care Wireless Network Engineer Name Role Phone Bambi Youngoliverio Primary Care Provider Reason For Referral No Information Medications Medication SIG (Take, Route, Frequency, Duration) Notes Start Date End Date Status CeleXA 10 MG 1 tablet Orally Once a day; Duration: 30 days out for 2 weeks Active Gabapentin 300 MG 1 capsule before bedtime Orally Three times a day; Duration: 30 days out for 2 weeks Active Naltrexone HCl 50 MG 1 tablet Orally Onc e a day; Duration: 14 days 10/19/2017 Active Vivitrol 380 MG 4 ml Intramuscular every 4 weeks; Duration: 28 days 10/19/2017 Active Social History Tobacco [...] Problem Status W/U Status Risk Notes Problem Obese class I (finding) ([id number] ) Obesity (BMI 30.0-34.9) (E66.9) Active confirmed Problem Opioid dependence (34687038) Heroin use disorder, severe (F11.20) Active confirmed Plan Of Treatment No Information Insurance Providers Payer Name Payer Address Payer Phone Subscriber Number Group Number Insured Name Patient Relationship to Insured Coverage Start Date Coverage End Date [facility] Claims Department [address] [place] [address] [phone] [id number] Nancy Mckinney Self - patient is the insured 8 [employer] PROFESSOR OF LEGAL STUDIES Attn Claims Department [address] [place] [address] [phone] [id number] Nancy Mckinney Self - patient is the insured 8 Medical (General) History Medical History History ICD Code Depression Anxiety
--- OUTSIDE RECORDS SUMMARY | 2025-05-13 14:51 | XMS_ITS | Encounter Summary ---
Author Organization [facility] Address [address] [facility] [place] [address] Phone Care Team Providers Care Educational Therapist Name Role Phone Kesha Stock APRN, CANDIS Unavailable [phone] Kesha Stock APRN, CANDIS Primary Care Provider Katt Buckley MD Unavailable [phone] Encounter Details Date Type Department Care Team (Late st Contact Info) Description 04/03/2025 Telephone [facility] [place] [address] [facility] [address] [address] Social History Tobacco Use Types Packs/Day Years Used Date Smoking Tobacco: Every Day Cigarettes 1 8 Smokeless Tobacco: Never Alcohol Use Standard Drinks/Week Comments No 0 (1 standard drink = 0.6 oz pur e alcohol) Social Connection and Isolation Panel Answer Date Recorded In a typical week, how many times do you talk on the phone with family, friends, or neighbors? Patient declined 04/02/2025 How often do you get togethe r with friends or relatives? Patient declined 04/02/2025 How often do you attend zoroastrian or judaism serv ices? Patient declined 04/02/2025 Do you belong to any clubs o r organizations such as zoroastrian groups, unions, fraternal or athletic groups, or school groups? Patient declined 04/02/2025 How often do you attend meet ings of the clubs or organizations you belong to? Patient declined 04/02/2025 Are you , , di vorced, , never , or living with a partner? Patient declined 04/02/2025 AUDIT-C Answer Date Recorded Q1: How often do you have a drink containing alc ohol? Patient declined 04/02/2025 Q2: How many drinks containi ng alcohol do you have on a typical day when you are drinking? Patient declined 04/02/2025 Q3: How often do you have si x or more drinks on one occasion? Patient declined 04/02/2025 Overall Financial Resource Strain (CARDIA) Answe r Date Recorded How hard is it for you to pa y for the very basics like food, housing, medical care, and heating? Patient declined 04/02/2025 [facility] Occupat ional Health - Occupational Stress Questionnaire Answer Date Recorded Do you feel stress - tense, restless, nervous, or anxious, or unable to sleep at night because your mind is troubled all the time - these days? Patient declined 04/02/2025 Exercise Vital Sign Answer Date Recorde d On average, how many days pe r week do you engage in moderate to strenuous exercise (like a brisk walk)? Patient declined On average, how many minutes do you engage in exercise at this level? Patient declined 04/02/2025 Hunger Vital Sign Answer Date Recorded Within the past 12 months, y ou worried that your food would run out before you got the money to buy more. Patient declined Within the past 12 months, t he food you bought just didn't last and you didn't have money to get more. Patient declined PRAPARE - Transportation Answer Date Re corded In the past 12 months, has l ack of transportation kept you from medical appointments or from getting medications? Patient declined 04/02/2025 In the past 12 months, has l ack of transportation kept you from meetings, work, or from getting things needed for daily living? Patient declined 04/02/2025 Housing Stability Vital Sign Answer Eladio e Recorded In the last 12 months, was t here a time when you were not able to pay the mortgage or rent on time? Patient declined 04/02/20 25 In the past 12 months, how m any times have you moved where you were living? 1 04/02/2025 At any time in the past 12 m [facility], were you homeless or living in a mcc (including now)? Patient declined 04/02/2025 [facility] Utilities Answer Date Recorded In the past 12 months has e electric, gas, oil, or water company threatened to shut off services in your home? Patient declined 04/02/2025 Comments No Sex and Gender Information Value Date Recorded Sex Assigned at Female 09/19/2024 7:10 PM SLAT BASKET MAKER HELPER Legal Sex Female 9:55 PM CDT Gender Identity Female 09/19/2024 7:10 PM SLAT BASKET MAKER HELPER Sexual Orientation Not on file documented as of this encounter Miscellaneous Notes * Telephone Encounter - Lyssa Faria - 04/04/2025 3:02 PM CDT Pt scheduled. * Telephone Encounter - Katt Buckley MD - 04/03/2025 1:23 PM CDT Cysto stent pull in 2 weeks documented in this encounter Plan of Treatment Upcoming Encounters Date Type Department Care Team (Late st Contact Info) Description 06/08/2025 1:45 PM CDT Office Visit [facility] [address] [place] [address] Katt Buckley MD #[address], [facility] [address] [place] [address] documented as of this encounter Visit Diagnoses Not on filedocumented in this encounter Care Teams Educational Therapist Relationship Specialty Start Date End Date Kesha Stock APRN, POWER SEWING MACHINE OPERATOR [address] [place] [address] PCP - General Advanced Practice Nurse 6/30/25 Kesha Stock, SHEAR ASSEMBLER, POWER SEWING MACHINE OPERATOR [address] [place] [address] Nurse Practitioner Advanced Practice Nurse 02/13/25 Katt Buckley MD #2 [facility] [address] [place] [address] Consulting Physician Urology 04/20/25 documented as of this encounter
--- OUTSIDE RECORDS SUMMARY | 2025-05-13 14:51 | XMS_ITS | Clinical Summary ---
Author Organization [facility] Address [address] [place] [address] Care Team Providers Care Golf Ball Inspector Name Role Phone Unavailable Primary Care Provider Unavailabl e Source Comments [facility],non-owned Affiliates and Associated Physician Practices is amultiple site organization consisting of ambulatory clinics and hospital sitesin [place], [place], [place] and [place]. This disclosure is being madepursuant to the Care Everywhere program and may not contain all information available regarding this patient. Last updated 18.[facility] Social History Tobacco Use Types Packs/Day Years Used Date Smoking Tobacco: Never Assessed Comments Unknown Sex and Gender Information Value Date Recorded Sex Assigned at Not on file Legal Sex Female 7:57 AM INSTALLER MOLDING AND TRIM Gender Identity Not on file Sexual Orientation Not on file Last Filed Vital Signs Vital Sign Reading Time Taken Comments Blood Pressure 138/102 11/06/2016 12:10 PM INSTALLER MOLDING AND TRIM Pulse 58 11/06/2016 12:10 PM INSTALLER MOLDING AND TRIM Temperature 36.4 C (97.6 F) 11/06/2016 12:10 PM INSTALLER MOLDING AND TRIM Respiratory Rate 18 11/06/2016 12:10 PM INSTALLER MOLDING AND TRIM Oxygen Saturation 100% 11/06/2016 12:10 PM INSTALLER MOLDING AND TRIM Inhaled Oxygen Concentration - - Weight 93 kg (205 lb) 11/05/2016 10:03 PM INSTALLER MOLDING AND TRIM Height 162.6 cm (5' 4) 11/05/2016 10:03 PM INSTALLER MOLDING AND TRIM Body Mass Index 35.19 11/05/2016 10:03 PM INSTALLER MOLDING AND TRIM Plan of Treatment Health Maintenance Due Date Last Done Comments HIV SCREENING 2001 HEPATITIS C SCREENING 08/21/2004 DTAP/TDAP/TD VACCINES (1 - Tdap) 2005 HEPATITIS B VACCINE (1 of 3 - 19+ 3-dose series) 2005 HPV VACCINE (1 - 3-dose SCDM series) 2013 COVID-19 VACCINE (1 - 2023-2 5 season) 2024 DEPRESSION SCREENING 10/04/2024 INFLUENZA VACCINE (#1) 2025 ZOSTER VACCINE (1 of 2) 2036 [...] patient's age to complete this topic Insurance [facility] MEDICAID - OUT OF [facility]
--- OUTSIDE RECORDS SUMMARY | 2025-05-13 14:52 | XMS_ITS | Clinical Summary ---
Author Organization [facility] Address [address] [place] [address] Care Team Providers Care Extrusion Manager Name Role Phone Unknown, Notinfile Primary Care Provider Unavail able Kesha Stock CLINICAL STUDY MANAGER Unavailable [phone] Allergies No known active allergies Medications prednisoLONE [...] phone number at which to reach patient: [phone] - Patient was wearing her contact lenses [...] Date Smoking Tobacco: Every Day Cigarettes 1 21.6 Started: 2003 Smokeless Tobacco: Never Tobacco Cessation:Ready [...] on file Legal Sex Female 2:41 AM NET DEVELOPER CONSULTANT Gender Identity Not on file Sexual Orientation [...] <65 (1 of 2 - PCV) 2005 HPV Vaccines (1 - 3-dose SCDM series) 2013 Influenza Vaccine (#1) 2025 10/21/2022, 2013 Insurance [facility] Care Teams Extrusion Manager Relationship Specialty Start Date End Date Unknown, Notinfile PCP - General 06/08/24 Kesha Stock, SABINA [address] [place] [address] Nurse Practitioner 06/08/24
--- OUTSIDE RECORDS SUMMARY | 2025-05-13 14:52 | XMS_ITS | Clinical Summary ---
Author Organization [facility] Address [address] [place] [address] Phone Care Team Providers Care Stock Receiver Name Role Phone Kesha Stock APRN, CNP Unavailable [phone] Kesha Stock APRN, CNP Primary Care Provider Katt Buckley MD Unavailable [phone] Allergies No known active allergies Medications amLODIPine (NORVASC) 5 MG Tablet Take 1 Tablet by mouth daily. 90 Tablet 5 Active oxybutynin (DITROPAN-XL) 10 MG TABLET SR 24 HR TAKE 1 TABLET BY MOUTH EVERY DAY 30 Tablet 5 Active HYDROcodone-ac etaminophen (NORCO) 5-325 MG TabletIndicati ons:Right ureteral stone Take 1 Tablet by mouth every 4 hours as needed for Moderate or more severe pain. 12 Tablet 5 05/03/20 25 Discontinue d(Med List Clean Up) ketorolac (TORADOL) 10 MG Tablet Take 1 Tablet by mouth every 6 hours as needed for Moderate or more severe pain. 30 Tablet 5 05/03/20 25 Discontinue d(Med List Clean Up) oxyCODONE (ROXICODONE) 5 MG TabletIndicati ons:Right ureteral stone Take 1 Tablet by mouth every 6 hours as needed for Severe pain. 15 Tablet 5 05/03/20 25 Discontinue d(Med List Clean Up) oxybutynin (DITROPAN-XL) 10 MG TABLET SR 24 HR Take 1 Tablet by mouth daily. 30 Tablet 5 05/03/20 25 Discontinue d(Med List Clean Up) citalopram (CeleXA) 10 MG Tablet 1 tablet Orally Once a day; Duration: 30 days 05/03/20 25 Discontinue d(Med List Clean Up) gabapentin (NEURONTIN) 300 MG Capsule 1 capsule before bedtime Orally Three times a day; Duration: 30 days 05/03/20 25 Discontinue d(Med List Clean Up) cephALEXin (KEFLEX) 500 MG CapsuleIndicat ions:Skin and Soft Tissue Infection Take 1 Capsule by mouth 3 times daily for 7 days. Indications: Infection of the Skin and/or Soft Tissue 21 Capsule 5 05/10/20 25 Active Problems Problem Noted Date Diagnosed Date Ureteral stone 04/03/2025 Right ureteral stone 04/02/2025 Acute cystitis without hematuria 04/02/2025 Common bile duct dilatation 11/05/2016 Anxiety 11/05/2016 VAZQUEZ (nonalcoholic steatohepatitis) 11/05/2016 Heroin addiction 11/05/2016 Tobacco abuse NAFLD (nonalcoholic fatty liver disease) Hypertension Resolved Problems Problem Noted Date Diagnosed Date Resolved Date Sepsis (<HCC>) 11/05/2016 10/21/2022 Left arm cellulitis 11/05/2016 10/21/19 23 Fatty liver 11/05/2016 11/05/2016 Hypokalemia 11/05/2016 10/21/2022 Encounters Date Type Department Care Team Description 05/02/2025 10:04 PM CDT - 05/03/2025 12:34 AM CDT Emergency [facility] Emergency [address] [place] [address] Ryan Johnson MD Contusion of right lower leg Discharge Disposition: Discharged to home or Selfcare 05/02/2025 Travel 05/02/2025 Refill [facility] [address] [place] [address] Katt Buckley MD Medication Refill 04/24/2025 2:00 PM CDT Procedure Visit [facility] [address] [place] [address] Katt Buckley MD Right ureteral stone (Primary Dx) Discharge Disposition: Discharged to home or Selfcare 04/24/2025 Travel 04/10/2025 Telephone [facility] [address] [place] [address] Katt Buckley MD 04/05/2025 Telephone [facility] [address] [place] [address] Katt Buckley MD Pain 04/05/2025 Telephone [facility] [address] [place] [address] Katt Buckley MD 04/03/2025 12:55 PM CDT - 04/03/2025 2:25 PM CDT [facility] Periop [address] [place] [address] Katt Buckley MD CYSTOSCOPY, RIGHT RETROGRADE PYELOGRAMS 04/03/2025 12:32 PM CDT [facility]esthesia [facility] [address] [place] [address] Jorge Luis Vivar APRN, DRAWING PRESS OPERATOR 04/03/2025 Telephone [facility] [address] [place] [address] Katt Buckley MD 04/02/2025 11:19 AM CDT - 04/03/2025 6:01 PM CDT Hospital Encounter [facility] Surg [address] [place] [address] Kesha Nino, Vladimir Davis APRN, QC TECH Lydia Carney MD Right ureteral stone Discharge Disposition: Discharged to home or Selfcare 04/02/2025 Travel 02/13/2025 10:30 PM CDT - 02/13/2025 10:52 PM CDT Emergency [facility] Emergency [address] [place] [address] Pasha Rodriguez PAC COVID-19 Discharge Disposition: Discharged to home or Selfcare 02/13/2025 Travel from Last 3 Months Immunizations Immunization Administration Dates Next Due Influenza Vaccine, Quadrivalent, PF 10/21/2022 Td Vaccine (preservative free) 05/02/2025 Family History Medical History Relation Name Comments Hypertension Brother Hypertension Father Relation Name Status Comments Brother Father Social History Tobacco Use Types Packs/Day Years Used Date Smoking Tobacco: Every Day Cigarettes 1 8 Smokeless Tobacco: Never Tobacco Cessation:Ready to Q uit: Not Asked; Counseling Given: Not Answered Alcohol Use Standard Drinks/Week Comments No 0 [...] declined 04/02/2025 How often do you attend restorationist or evangelical serv ices? Patient declined 04/02/2025 Do you belong to any clubs o r organizations such as restorationist groups, unions, fraternal or athletic groups, or [...] medical care, and heating? Patient declined 04/02/2025 [facility] - Occupational Stress [...] any time in the past 12 m [facility], were you homeless or living in a penitentiary (including now)? Patient declined 04/02/2025 [facility] Utilities Answer Date Recorded In the past 12 months has th e electric, gas, oil, or water company threatened to shut off services in your home? Patient declined 04/02/2025 Comments No Sex and Gender Information Value Date Recorded Sex Assigned at Female 09/19/2024 7:10 PM CONVENTIONS RESERVATIONIST Legal Sex Female 9:55 PM CDT Gender Identity Female 09/19/2024 7:10 PM CONVENTIONS RESERVATIONIST Sexual Orientation Not on file Last Filed Vital Signs Vital Sign Reading Time Taken Comments Blood Pressure 142/88 05/03/2025 12:15 AM CDT Pulse 94 05/03/2025 12:15 AM CDT Temperature 37.2 C (98.9 F) 05/03/2025 12:15 AM CDT Respiratory Rate 18 05/03/2025 12:15 AM CDT Oxygen Saturation 99% 05/03/2025 12:15 AM CDT Inhaled Oxygen Concentration - - Weight 101.6 kg (224 lb) 05/02/2025 10:12 PM CDT Height 162.6 cm (5' 4) 05/02/2025 10:12 PM CDT Body Mass Index 38.45 05/02/2025 10:12 PM CDT Plan of Treatment Upcoming Encounters Date Type Department Care Team (Late st Contact Info) Description 06/08/2025 1:45 PM CDT Office Visit [facility] [address] [place] [address] Katt Buckley MD [id number] [address] Health Maintenance Due Date Last Done Comments Hepatitis C Virus (HCV) Screening 1986 TdaP Immunization 1986 Hepatitis B Immunization (1 of 3 - 19+ 3-dose series) 2005 Pneumococcal Immunization Combined (1 of 2 - PCV) 2005 Human Papillomavirus (HPV) Immunization (1 - 3-dose SCDM series) 2013 HPV/Cotest 2016 SARS-COV-2 Immunization ( season) 2024 Influenza Immunization (#1) 06/04/202510/04, 07/23/2014, 08/14/2011 Cervical Cancer Screening (CCS) 11/25/2025 Pap Smear 11/25/2025 11/25/2022 Respiratory Syncytial Virus (RSV) Immunization (Adult) (1 - 1-dose 75+ series) 2061 DTaP/Tdap/Td Immunization Discontinued 05/02/2025 Meningococcal Immunization (ACWY) Aged Out No longer eligible based on patient's age to complete this topic Rotavirus Immunization Aged Out No lo nger eligible based on patient's age to complete this topic Medical Devices Implanted Type Area Mechanical Engineering Teacher Device Identifier Shelf Expiration Date Model / Serial / Lot Stent Ureteral 6fr 2.1fr 26cm 2 Pigtail Curve 2 Durometer Taper Tip Loprfl Graduated Polaris Ultra - [id number] Implanted:Qty : 1 on 04/03/2025 by Katt Buckley MD at [facility] IMPLANT Right: Ureter Nokter 12/25/2027 [id number] / [id number] / [id number] Procedures Procedure Name Priority Date/Time Associated Diagnosis Comments XR TIBIA & FIBULA RIGHT STAT 05/02/2025 10:35 PM CDT LACERATION REPAIR Routine 05/02/2025 10:19 PM CDT POCT UA AUTOMATED W/O MICRO Routine 04/24/2025 2:16 PM CDT Right ureteral stone CYSTOSCOPY,REMV CALCULUS,SIMPLE Routine 04/24/2025 2:00 PM CDT Right ureteral stone POCT GLUCOSE Routine 04/03/2025 2:29 PM CDT XR RETROGRADE PYELOGRAM Routine 04/03/2025 1:05 PM CDT LMA Routine 04/03/2025 12:43 PM CDT CYSTO/URETERO W/LITHOTRIPSY 04/03/2025 12:12 PM CDT RIGHT URETERAL STONE, URINARY TRACT INFECTION CYSTOSCOPY,INSERT URETERAL STENT 04/03/2025 12:12 PM CDT RIGHT URETERAL STONE, URINARY TRACT INFECTION CYSTOSCOPY,INSERT URETHRAL STENT 04/03/2025 12:12 PM CDT RIGHT URETERAL STONE, URINARY TRACT INFECTION DIAG-RETROGRADE PYELOGRAM 04/03/2025 12:12 PM CDT RIGHT URETERAL STONE, URINARY TRACT INFECTION CYSTOURETHROSCOPY, URETER CATHETER 04/03/2025 12:12 PM CDT RIGHT URETERAL STONE, URINARY TRACT INFECTION CBC WITH AUTO DIFFERENTIAL Routine 04/03/2025 6:26 AM CDT COMPLETE BLOOD COUNT (CBC) WITH DIFF Routine 04/03/2025 6:26 AM CDT BASIC METABOLIC PANEL W/ CALCIUM TOTAL Routine 04/03/2025 6:26 AM CDT CULTURE, BLOOD STAT 04/02/2025 2:10 PM CDT CULTURE, BLOOD STAT 04/02/2025 2:[address] RENAL STONE STUDY (ABDOMEN AND PELVIS W/O CONTRAST) Stat with Interpretation 04/02/2025 12:23 PM CDT URINALYSIS REFLEX IF INDICATED BY ABNORMAL RESULTS STAT 04/02/2025 11:42 AM CDT CULTURE, URINE STAT 04/02/2025 11:42 AM CDT POCT URINE HCG () STAT 04/02/2025 11:40 AM CDT CBC WITH AUTO DIFFERENTIAL STAT 04/02/2025 11:38 AM CDT LIPASE STAT 04/02/2025 11:38 AM CDT CMP (COMPREHENSIVE METABOLIC PANEL) STAT 04/02/2025 11:38 AM CDT COMPLETE BLOOD COUNT (CBC) WITH DIFF STAT 04/02/2025 11:38 AM CDT RSV,SARS-COV-2,INF LUENZA A&B BY PCR STAT 02/13/2025 9:28 PM CDT PATHOLOGY CYTOLOGY MULTIPLEX OPERATOR Routine 11/25/2022 4:16 PM CONVENTIONS RESERVATIONIST Well woman exam with routine gynecological exam from Last 3 Months or Most Recently Relevant to Health Maintenance Results * XR TIBIA & FIBULA RIGHT (05/02/2025 10:35 PM CDT) Anatomical Region Laterality Modality LOWER EXTREMITY, leg Right Digital Rad iography 05/02/2025 10:5 9 PM CDT Impressions 05/02/2025 11:02 PM CDT IMPRESSION: No acute osseous abnormality. Narrative 05/02/2025 11:02 PM CDT EXAM DESCRIPTION: XR TIBIA and FIBULA RIGHT REASON FOR STUDY: fall with laceration today. laceration to anterior right tib-fib TECHNIQUE: 2 radiographic view(s) of the right lower leg . COMPARISON: None FINDINGS: BONES/JOINTS: There is no acute fracture, malalignment or osseous abnormality. The joint spaces are normal. SOFT TISSUES: Laceration of the anterior lower lung is noted. No radiopaque foreign bodies are seen THIS IS AN ELECTRONICALLY VERIFIED FINAL REPORT 05/02/2025 10:59 PM - Electronically signed by Jorge Luis Napier M.D. KH: JF Report ID: [id number] Reading Location: [id number] Procedure Note Jorge Luis Napier MD - 05/02/2025 EXAM DESCRIPTION: XR TIBIA and FIBULA RIGHT REASON FOR STUDY: fall with laceration today. laceration to anterior right tib-fib TECHNIQUE: 2 radiographic view(s) of the right lower leg . COMPARISON: None FINDINGS: BONES/JOINTS: There is no acute fracture, malalignment or osseous abnormality. The joint spaces are normal. SOFT TISSUES: Laceration of the anterior lower lung is noted. No radiopaque foreign bodies are seen THIS IS AN ELECTRONICALLY VERIFIED FINAL REPORT 05/02/2025 10:59 PM - Electronically signed by Jorge Luis Napier M.D. KH: JF Report ID: [id number] Reading Location: [id number] IMPRESSION: No acute osseous abnormality. Ryan Johnson MD IMG DIAGNOSTIC ORDERABLES Final Result * Laceration Repair (05/02/2025 10:19 PM CDT) Narrative Ryan Johnson MD - 05/02/2025 10:19 PM CDT Ryan Johnson MD 05/03/2025 12:20 AM Laceration Repair Performed by: Ryan Johnson MD Authorized by: Ryan Johnson MD Consent: Consent obtained: Verbal Consent given by: Patient Risks discussed: Infection, pain and poor cosmetic result Alternatives discussed: No treatment and observation Repton protocol: Imaging studies available: yes Required blood products, implants, devices, and special equipment available: yes Patient identity confirmed: Verbally with patient Anesthesia: Anesthesia method: Local infiltration Local anesthetic: Lidocaine 1% w/o epi Laceration details: Location: Leg Leg location: R lower leg Length (cm): 4 Depth (mm): 4 Pre-procedure details: Preparation: Imaging obtained to evaluate for foreign bodies and patient was prepped and draped in usual sterile fashion Exploration: Limited defect created (wound extended): no Hemostasis achieved with: Direct pressure Imaging obtained: x-ray Imaging outcome: foreign body not noted Wound exploration: wound explored through full range of motion and entire depth of wound visualized Wound extent: no foreign bodies/material noted, no muscle damage noted, no nerve damage noted, no tendon damage noted and no vascular damage noted Contaminated: no Treatment: Wound cleansed with: wound cleanser. Irrigation volume: 100 Irrigation method: Syringe Visualized foreign bodies/material removed: no Debridement: None Undermining: None Skin repair: Repair method: Sutures Suture size: 4-0 Suture material: Nylon Suture technique: Simple interrupted Number of sutures: 7 Approximation: Approximation: Close Repair type: Repair type: Simple Post-procedure details: Dressing: Antibiotic ointment, non-adherent dressing and sterile dressing Procedure completion: Tolerated well, no immediate complications Ryan Johnson MD PROCEDURE/MINOR SURGICAL ORDERABLES Final Result * (ABNORMAL) POCT UA AUTOMATED W/O MICRO (04/24/2025 2:16 PM CDT) POC UA SPECIFIC GRAVITY 1.020 URINE PH 5.0 5.0 - 9.0 POC URINE LEUKOCYTES 500 /uL(A) Negative Maninder/uL POC URINE NITRITE Negative Negative POC URINE PROTEIN 100 mg/dL(A) Negative mg/dL POC URINE GLUCOSE Norm Negative, Norm mg/dL POC URINE KETONE Negative Negative mg/dL POC URINE UROBILINOGEN Norm Norm, 0.2 E.U./dL (mg/dL), 1 E.U./dL (mg/dL) POC URINE BILIRUBIN Negative Negative mg/dL POC URINE BLOOD INSTRUMENT 250 Jose/uL(A) Negative Jose/uL POC URINE COLOR Yellow POC URINE CLARITY Cloudy Urine 04/24/2025 2:16 PM CDT Katt Campa MD POINT OF CARE TESTING (MANUAL) Final Result * CYSTOSCOPY,REMV CALCULUS,SIMPLE (04/24/2025 2:00 PM CDT) Narrative Katt Buckley MD - 04/24/2025 2:00 PM CDT Katt Buckley MD 04/24/2025 4:31 PM Cystoscopy Procedure Note Date of Visit: 04/24/2025 Cystourethroscopy and stent removal Nancy Mckinney is a 39 y.o. female who presents for cystoscopy and removal of an indwelling JJ stent on the right side that was placed following ureteroscopy. Indication(s): Indwelling ureteral stent. Verbal and written consent was obtained and a Time Out was performed. Urinalysis: Urine dipstick shows negative nitrites. Procedure: The patient was positioned in the supine position. The patient was then placed in the dorsolithotomy position with all pressure points padded again. The urethra and genitals were prepped in the usual fashion. Local anesthesia with 1% lidocaine jelly was administered transurethrally. A well lubricated 16 Welsh flexible cystoscope was introduced transurethrally. Findings listed below. Through this, flexible stent graspers were advanced through the scope. The distal curl of the stent was visualized. It was pulled and removed without resistance. It was removed intact. Both curls were visualized. There was no debris on the stent noted. Findings: Urethra: No strictures, lesions, or stones Bladder: No stones, tumors, lesions. No trabeculations, diverticuli. Bilateral UO in orthotopic position with clear efflux Stent: Removed intact with both curls visualized outside the body. Stent discarded The patient tolerated the procedure well. Specimen sent: None Plan: See progress note Katt Campa MD OK - SURGERY Final Result * (ABNORMAL) POCT Glucose (04/03/2025 2:29 PM CDT) GLUCOSEOSCARID E POCT 114(H) 70 - 99 mg/dL 04/03/2025 2:35 PM CDT [facility] Blood 04/03/2025 2:29 PM CDT 04/03/2025 2:35 PM CDT us None Provider POINT OF CARE TESTING Final Resu lt [facility] [address] [place] [address] * XR RETROGRADE PYELOGRAM (04/03/2025 1:05 PM CDT) us Katt Campa MD IMG FLUOROSCOPY ORDERABLES Fin al Result * LMA (04/03/2025 12:43 PM CDT) Narrative Jorge Luis Vivar APRN, CRNA - 04/03/2025 12:43 PM CDT Jorge Luis Vivar APRN, CRNA 04/03/2025 12:44 PM LMA Staffing Performed: resident/ALFONSO Resident/DRAWING PRESS OPERATOR: Jorge Luis Vivar APRN, CRNA Performed by: Jorge Luis Vivar APRN, CRNA Authorized by: Jorge Luis Vivar APRN, CRNA Airway Details Overall Difficulty: Easy Preoxygenated: Yes Ease of Mask Ventilation: Not attempted LMA Type: Disposable LMA Size: 4 Adequate seal established: Yes LMA placement confirmed by: bilateral breath sounds, CO2 detection Atraumatic LMA Placement us Jorge Luis Vivar APRN, CRNA ANESTHESIA ORDERAB LES Final Result * (ABNORMAL) CBC with Auto Differential (04/03/2025 6:26 AM CDT) Only the most recent of2 resultswithin the time period is included. WBC 10.70 4.00 - 12.00 10(3)/mcL 04/03/2025 6:[address] [facility] RBC 4.38 3.80 - 5.30 10(6)/mcL 04/03/2025 6:[address] [facility] HEMOGLOBIN (HGB) 12.2 12.0 - 15.8 g/dL 04/03/2025 6:[address] [facility] HEMATOCRIT (HCT) 37.9 36.0 - 47.0 % 04/03/2025 6:[address] [facility] MCV 86.5 82.0 - 96.0 fL 04/03/2025 6:[address] [facility] MCH 27.9 26.0 - 34.0 pg 04/03/2025 6:[address] [facility] MCHC 32.2 31.0 - 36.0 g/dL 04/03/2025 6:[address] [facility] PLATELET COUNT 352 140 - 440 10(3)/mcL 04/03/2025 6:[address] [facility] RDW 13.7 11.8 - 15.5 % 04/03/2025 6:[address] [facility] MPV 8.9(L) 9.7 - 12.4 fL 04/03/2025 6:[address] [facility] NEUTROPHILS 60.7 47.0 - 73.0 % 04/03/2025 6:[address] [facility] LYMPHOCYTES 31.2 18.0 - 42.0 % 04/03/2025 6:[address] [facility] MONOCYTES 4.3 4.0 - 12.0 % 04/03/2025 6:[address] [facility] EOSINOPHILS 3.0 0.0 - 5.0 % 04/03/2025 6:[address] [facility] BASOPHILS 0.4 0.0 - 1.0 % 04/03/2025 6:[address] [facility] IMMATURE GRANULOCYTE 0.4 0.0 - 0.4 % 04/03/2025 6:35 AM CDT [facility] Comment:Immature Granulocyte s includes Metamyelocytes, Myelocytes, and Promyelocytes. ABSOLUTE NEUTROPHILS 6.50 1.60 - 7.70 10(3)/[facility] 04/03/2025 6:[address] [facility] ABSOLUTE LYMPHOCYTES 3.34(H) 1.30 - 3.20 10(3)/[facility] 04/03/2025 6:[address] [facility] ABSOLUTE MONOCYTES 0.46 0.20 - 1.00 10(3)/[facility] 04/03/2025 6:[address] [facility] ABSOLUTE EOSINOPHIL 0.32 0.00 - 0.40 10(3)/[facility] 04/03/2025 6:35 AM CDT [facility] ABSOLUTE BASOPHILS 0.04 0.00 - 0.10 10(3)/[facility] 04/03/2025 6:35 AM CDT [facility] ABSOLUTE IMMATURE GRANULOCYTE 0.04(H) 0.00 - 0.03 10 (3) [facility]. 04/03/2025 6:35 AM CDT [facility] NRBC PER 100 WBC 0 04/03/20 6:35 AM CDT [facility] Blood Venipuncture / Unknown 04/03/2025 6:26 AM CDT 04/03/2025 6:26 AM CDT us Vladimir Galvin GOLF COURSE MANAGER, QC TECH HEMATOLOGY ORDERABLES F inal Result [facility] [address] [place] [address] * (ABNORMAL) BMP with Ca, Total (04/03/2025 6:26 AM CDT) SODIUM 139 136 - 145 mmol/L 04/03/2025 6:48 AM CDT [facility] POTASSIUM 3.9 3.5 - 5.1 mmol/L 04/03/2025 6:[address] [facility] CHLORIDE 109(H) 98 - 107 mmol/L 04/03/2025 6:48 AM CDT [facility] CO2, VENOUS 24 22 - 30 mmol/L 04/03/2025 6:48 AM CDT [facility] ANION GAP 9.9 <18.0 mmol/L 04/03/2025 6:[address] [facility] GLUCOSE 99 70 - 99 mg/dL 04/03/2025 6:[address] [facility] BUN 14 5 - 18 mg/dL 04/03/2025 6:[address] [facility] CREATININE, BLOOD 0.91 0.60 - 1.00 mg/dL 04/03/2025 6:48 AM CDT [facility] BUN/CREATININE RATIO 15 12 - 20 ratio 04/03/2025 6:48 AM CDT [facility] CALCIUM 8.0(L) 8.7 - 10.5 mg/dL 04/03/2025 6:48 AM CDT [facility] GFR, ESTIMATED >60 >=60 04/03/2025 6:48 AM CDT [facility] Comment: Creatinine Clearance is the preferred criteria for selecting drug dose adjustments in renally impaired patients. The GFR is provided as additional pertinent clinical information. GFR is reported in mL/min/1.73 sq m. Calculation based on the Chronic Kidney Disease Epidemiology Collaboration (CKD- EPI) equation refit without adjustment for race. GFR, EST. >60 >=60 025 6:[address] [facility] GFR, EST. NONAFRICAN >60 >=60 04/03/2025 6:48 AM CDT [facility] Blood Venipuncture / Unknown 04/03/2025 6:26 AM CDT 04/03/2025 6:26 AM CDT us Vladimir Galvin GOLF COURSE MANAGER, QC TECH CHEMISTRY ORDERABLES Fi nal Result [facility] [address] [place] [address] * Culture, Blood [id number] (04/02/2025 2:10 PM CDT) Only the most recent of2 resultswithin the time period is included. CULTURE RESULTS NO GROWTH WITHIN 5 DAYS, FINAL RESULT 04/07/2025 3:00 PM CDT [facility] Culture (Peripheral Vein) Venipuncture / Unknown 04/02/2025 2:10 PM CDT 04/02/2025 2:23 PM CDT us Kesha Sarpy Page PAC MICROBIOLOGY - GENERAL ORDER TINA Final Result [facility] [address] [place] [address], [place] * CT RENAL STONE STUDY (ABDOMEN AND PELVIS W/O CONTRAST) (04/02/2025 12:23 PM CDT) Anatomical Region Laterality Modality Abdomen N/A Computed Tomogra phy 04/02/2025 12:3 8 PM CDT Impressions 04/02/2025 12:41 PM CDT IMPRESSION: 1. Mild right-sided hydronephrosis and hydroureter. There is a 3 mm calculus in the right hemipelvis favored to be a ureteral stone. No other evidence of obstructing urolithiasis. There is some perivesical haziness and [place] pelvic/right periureteral stranding. Subtle periureteral stranding on the left. Consider superimposed infection. Evaluation for pyelonephritis limited on noncontrast imaging. Correlate with laboratory values, urinalysis and urine culture. 2. No other evidence of urolithiasis. 3. No bowel obstruction, free air or free fluid. Normal appendix. Narrative 04/02/2025 12:41 PM CDT EXAM DESCRIPTION: CT RENAL STONE STUDY (ABDOMEN AND PELVIS W/O CONTRAST) REASON FOR STUDY: Lower back and abd pain that started around 0400 today. Hx of HTN and NAFLD TECHNIQUE: CT scan of the abdomen and pelvis performed without intravenous and without oral contrast using helical scanning technique. Reconstructed coronal and sagittal MPR images reviewed. All images stored on PACS. Automated exposure control was used as a dose optimization technique for this examination. COMPARISON: 07/10/2021, 01/31/2017. FINDINGS: The sensitivity for detection of visceral lesions is diminished without the use of intravenous contrast. LOWER CHEST: No consolidation in either lung base. No pleural or pericardial effusion. LIVER: Normal size. No appreciable mass within the limitations of this noncontrast study. GALLBLADDER: No stones identified. No wall thickening or inflammatory changes. BILE DUCTS: No intrahepatic or extrahepatic ductal dilatation. Stable from prior study. SPLEEN: Normal size. No focal lesions. PANCREAS: No peripancreatic inflammatory process or fluid collection. Assessment for mass limited on noncontrast imaging. ADRENALS: Unremarkable KIDNEYS/URINARY TRACT: The left kidney is unremarkable. No left-sided hydronephrosis or hydroureter. There is some peripelvic haziness on the right. Mild pelviectasis. There is mild hydroureter. Periureteral stranding most evident at the proximal ureter. Findings are suggestive of a distal ureteral calculus as visualized on axial image number 144 measuring 3 mm. There is an adjacent calcification, similar to prior study on image 140, favored to represent a vascular calcification. No other evidence of urolithiasis. The distal right ureter is decompressed. The urinary bladder is decompressed, accentuating wall thickness. Subtle perivesical haziness. Consider cystitis in the appropriate clinical setting. GI: The stomach is unremarkable. Small bowel loops are normal in caliber. There is no wall thickening or obstruction. The appendix is normal. There is no colonic obstruction. The left hemicolon is largely decompressed, limiting evaluation. PERITONEUM: No free intraperitoneal air. No free fluid. No mesenteric adenopathy. RETROPERITONEUM: No retroperitoneal mass or adenopathy. REPRODUCTIVE: No significant abnormality. VASCULATURE: Abdominal aorta is atherosclerotic without aneurysm. MUSCULOSKELETAL: No significant abnormality. OTHER: No other abnormality. THIS IS AN ELECTRONICALLY VERIFIED FINAL REPORT 04/02/2025 12:38 PM - Electronically signed by Ria Barroso M.D. TW: MICHELLE Report ID: [id number] Reading Location: [id number] Procedure Note Ria Barroso MD - 04/02/2025 EXAM DESCRIPTION: CT RENAL STONE STUDY (ABDOMEN AND PELVIS W/O CONTRAST) REASON FOR STUDY: Lower back and abd pain that started around 0400 today. Hx of HTN and NAFLD TECHNIQUE: CT scan of the abdomen and pelvis performed without intravenous and without oral contrast using helical scanning technique. Reconstructed coronal and sagittal MPR images reviewed. All images stored on PACS. Automated exposure control was used as a dose optimization technique for this examination. COMPARISON: 07/10/2021, 01/31/2017. FINDINGS: The sensitivity for detection of visceral lesions is diminished without the use of intravenous contrast. LOWER CHEST: No consolidation in either lung base. No pleural or pericardial effusion. LIVER: Normal size. No appreciable mass within the limitations of this noncontrast study. GALLBLADDER: No stones identified. No wall thickening or inflammatory changes. BILE DUCTS: No intrahepatic or extrahepatic ductal dilatation. Stable from prior study. SPLEEN: Normal size. No focal lesions. PANCREAS: No peripancreatic inflammatory process or fluid collection. Assessment for mass limited on noncontrast imaging. ADRENALS: Unremarkable KIDNEYS/URINARY TRACT: The left kidney is unremarkable. No left-sided hydronephrosis or hydroureter. There is some peripelvic haziness on the right. Mild pelviectasis. There is mild hydroureter. Periureteral stranding most evident at the proximal ureter. Findings are suggestive of a distal ureteral calculus as visualized on axial image number 144 measuring 3 mm. There is an adjacent calcification, similar to prior study on image 140, favored to represent a vascular calcification. No other evidence of urolithiasis. The distal right ureter is decompressed. The urinary bladder is decompressed, accentuating wall thickness. Subtle perivesical haziness. Consider cystitis in the appropriate clinical setting. GI: The stomach is unremarkable. Small bowel loops are normal in caliber. There is no wall thickening or obstruction. The appendix is normal. There is no colonic obstruction. The left hemicolon is largely decompressed, limiting evaluation. PERITONEUM: No free intraperitoneal air. No free fluid. No mesenteric adenopathy. RETROPERITONEUM: No retroperitoneal mass or adenopathy. REPRODUCTIVE: No significant abnormality. VASCULATURE: Abdominal aorta is atherosclerotic without aneurysm. MUSCULOSKELETAL: No significant abnormality. OTHER: No other abnormality. THIS IS AN ELECTRONICALLY VERIFIED FINAL REPORT 04/02/2025 12:38 PM - Electronically signed by Ria Barroso M.D. TW: MICHELLE Report ID: [id number] Reading Location: [id number] IMPRESSION: 1. Mild right-sided hydronephrosis and hydroureter. There is a 3 mm calculus in the right hemipelvis favored to be a ureteral stone. No other evidence of obstructing urolithiasis. There is some perivesical haziness and [place] pelvic/right periureteral stranding. Subtle periureteral stranding on the left. Consider superimposed infection. Evaluation for pyelonephritis limited on noncontrast imaging. Correlate with laboratory values, urinalysis and urine culture. 2. No other evidence of urolithiasis. 3. No bowel obstruction, free air or free fluid. Normal appendix. Kesha Sarpy Page PAC IMG CT ORDERABLES Final Resu lt * (ABNORMAL) Urinalysis w/ Reflex (04/02/2025 11:42 AM CDT) SPECIFIC GRAVITY 1.015 1.003 - 1.030 04/02/2025 12:[address] [facility] URINE PH 6.0 5.0 - 9.0 04/02/2025 12:[address] [facility] WBC ESTERASE 500 /uL(A) Negative 04/02/2025 12:[address] [facility] NITRITE Negative Negative 04/02/2025 12:[address] [facility] PROTEIN, RANDOM URINE 500 mg/dL(A) Negative 04/02/2025 12:[address] [facility] URINE GLUCOSE, QUAL Negative Negative 04/02/2025 12:[address] [facility] URINE KETONES Negative Negative 04/02/2025 12:[address] [facility] UROBILINOGEN Normal Normal mg/dL 04/02/2025 12:[address] [facility] URINE BLOOD 250 /uL(A) Negative jose/ul 04/02/2025 12:[address] [facility] URINALYSIS COLOR Yellow 04/02/20 12:[address] [facility] URINALYSIS CLARITY Very Cloudy 04/02/2025 12:[address] [facility] WBC (Urine) 51-150(A) Negative, 0-5 /hpf 04/02/2025 12:[address] [facility] URINE RBC'S Packed(A) Negative, 0-2 /hpf 04/02/2025 12:[address] [facility] EPITHELIAL CELLS Large amount squamous /lpf 04/02/2025 12:[address] [facility] BACTERIA, URINE Moderate(A) Negative /hpf 04/02/2025 12:[address] [facility] Urine URINE SPECIMEN OBTAINED BY CLEAN CATCH PROCEDURE / Unknown Non-Phlebotomy Collection / Unknown 04/02/2025 11:42 AM CDT 04/02/2025 11:50 AM CDT us Kesha Golden Page PAC URINE ORDERABLES Final Resul t [facility] [address] [place] [address] * Culture, Urine (04/02/2025 11:42 AM CDT) CULTURE RESULTS ESCHERICHIA COLI 04/04/2025 4:44 PM CDT [facility] CULTURE RESULTS ALSO MIXED GROWTH OF DISTAL URETHRA CONTAMINANTS. 04/04/2025 4:44 PM CDT [facility] Urine URINE SPECIMEN OBTAINED BY CLEAN CATCH PROCEDURE / Unknown Non-Phlebotomy Collection / Unknown 04/02/2025 11:42 AM CDT 04/02/2025 11:50 AM CDT Narrative Organism Antibiotic Method Susceptibility Escherichia coli Ampicillin [facility] V[facility] II >=32 mcg/ml: Resistant Escherichia coli Ampicillin/sulbactam [facility] VITEK II >=32 mcg/ml: Resistant Escherichia coli Cefazolin [facility] VITEK II <16 mcg/ml: Susceptible Escherichia coli Cefepime [facility] VITEK II <=0.12 mcg/ml: Susceptible Escherichia coli Ceftriaxone [facility] VITEK II <=0.25 mcg/ml: Susceptible Escherichia coli Gentamicin [facility] VITEK II <=1 mcg/ml: Susceptible Escherichia coli Levofloxacin [facility] VITEK II <=0.12 mcg/ml: Susceptible Escherichia coli Meropenem [facility] VITEK II <=0.25 mcg/ml: Susceptible Escherichia coli Nitrofurantoin [facility] VITEK II <=16 mcg/ml: Susceptible Escherichia coli Piperacillin/Tazobactam [facility] VITEK II <=4 mcg/ml: Susceptible Escherichia coli Trimeth/Sulfamethoxazole [facility] VITEK I I <=20 mcg/ml: Susceptible Kesha Nino PAC MICROBIOLOGY - GENERAL ORDER TINA Final Result [facility] [address] [place] [address], * POCT Urine HCG () (04/02/2025 11:40 AM CDT) POC URINE Negative POC URINE CONTROL Mechanic'S Assistant Pass Urine 04/02/2025 11:4 0 AM CDT Kesha Nino PAC POINT OF CARE TESTING (MANUA L) Final Result * Lipase (04/02/2025 11:38 AM CDT) LIPASE 18 8 - 78 U/L 04/02/2025 12:14 PM CDT [facility] Blood Venipuncture / Unknown 04/02/2025 11:38 AM CDT 04/02/2025 11:48 AM CDT Kesha Nino PAC CHEMISTRY ORDERABLES Final R esult [facility] [address] [place] [address] * (ABNORMAL) CMP (04/02/2025 11:38 AM CDT) SODIUM 136 136 - 145 mmol/L 04/02/2025 12:[address] [facility] POTASSIUM 4.3 3.5 - 5.1 mmol/L 04/02/2025 12:14 PM CDT [facility] CHLORIDE 102 98 - 107 mmol/L 04/02/2025 12:[address] [facility] CO2, VENOUS 25 22 - 30 mmol/L 04/02/2025 12:14 PM CDT [facility] ANION GAP 13.3 <18.0 mmol/L 04/02/2025 12:14 PM CDT [facility] GLUCOSE 105(H) 70 - 99 mg/dL 04/02/2025 12:14 PM CDT [facility] BUN 10 5 - 18 mg/dL 04/02/2025 12:14 PM CDT [facility] CREATININE, BLOOD 0.91 0.60 - 1.00 mg/dL 04/02/2025 12:14 PM CDT [facility] BUN/CREATININE RATIO 11(L) 12 - 20 ratio 04/02/2025 12:14 PM CDT [facility] TOTAL PROTEIN 8.2(H) 6.0 - 8.0 g/dL 04/02/2025 12:14 PM CDT [facility] ALBUMIN 4.4 3.5 - 5.0 g/dL 04/02/2025 12:14 PM CDT [facility] A/G RATIO 1.2 1.0 - 2.2 04/02/2025 12:14 PM CDT [facility] CALCIUM 9.2 8.7 - 10.5 mg/dL 04/02/2025 12:14 PM CDT [facility] T BILI 0.3 0.2 - 1.2 mg/dL 04/02/2025 12:14 PM CDT [facility] SGOT (AST) 17 <43 U/L 04/02/2025 12:[address] [facility] SGPT (ALT) 14 <56 U/L 04/02/2025 12:[address] [facility] ALKALINE PHOSPHATASE 110 40 - 150 U/L 04/02/2025 12:[address] [facility] GFR, ESTIMATED >60 >=60 04/02/2025 12:[address] [facility] Comment: Creatinine Clearance is the preferred criteria for selecting drug dose adjustments in renally impaired patients. The GFR is provided as additional pertinent clinical information. GFR is reported in mL/min/1.73 sq m. Calculation based on the Chronic Kidney Disease Epidemiology Collaboration (CKD- EPI) equation refit without adjustment for race. GFR, EST. >60 >=60 025 12:[address] [facility] GFR, EST. NONAFRICAN >60 >=60 04/02/2025 12:14 PM CDT [facility] Blood Venipuncture / Unknown 04/02/2025 11:38 AM CDT 04/02/2025 11:48 AM CDT Kesha Golden Page PAC CHEMISTRY ORDERABLES Final R esult [facility] [address] [place] [address] * (ABNORMAL) RSV,SARS-COV-2,INFLUENZA A&B BY PCR (02/13/2025 9:28 PM CDT) FLU A Negative Negative, Error 02/13/2025 10:[address] [facility] FLU B Negative Negative 02/13/2025 10:[address] [facility] RESP SYNC VIRUS Negative Negative 02/13/2025 10:[address] [facility] SARSCOV2 DETECTED(A) (Reference Range for this test is Not Detected) 02/13/2025 10:27 PM CDT [facility] Swab NASOPHARYNGEAL WASHINGS / Unknown Non-Phlebotomy Collection / Unknown 02/13/2025 9:28 PM CDT 02/13/2025 9:47 PM CDT us Refugio Young MD MICROBIOLOGY - GENERAL ORDERABLES Final Result [facility] [address] [place] [address] * PATHOLOGY CYTOLOGY MULTIPLEX OPERATOR (11/25/2022 4:16 PM CONVENTIONS RESERVATIONIST) SPECIMEN ADEQUACY Satisfactory for evaluation. Endocervical/trans formation zone component is absent. 12/06/2022 5:38 AM CONVENTIONS RESERVATIONIST [facility] GENERAL CATEGORY EPITHELIAL CELL ABNORMALITY. 12/06/2022 5:38 AM CONVENTIONS RESERVATIONIST [facility] DESCRIPTIVE DIAGNOSIS Low grade squamous intraepithelial lesion. 12/06/2022 5:38 AM CONVENTIONS RESERVATIONIST [facility] at 0537 CONVENTIONS RESERVATIONIST RECOMMENDATION Colposcopy and/or biopsy suggested. 12/06/2022 5:38 AM [facility] Automated Examination Analysis of this sample has been assisted by an automated imaging and review system ([employer], [employer], [place], [place]). The case is further evaluated and finalized by a radio program director and/or pathologist. 12/06/2022 5:38 AM [facility] Disclaimer The PAP smear is a screening [...] 65 unless clinically indicated. 12/06/2022 5:38 AM CONVENTIONS RESERVATIONIST [facility] Other SPECIMEN FROM CERVIX OR VAGINA / Unknown Non-Phlebotomy Collection / Unknown 11/25/2022 4:16 PM CONVENTIONS RESERVATIONIST 11/25/2022 4:16 PM CONVENTIONS RESERVATIONIST Kesha Stock APRN, CNP PATHOLOGY/CYTOLOGY ARNULFO KEANE Final Result [facility] [address] [place] [address], [place] from Last 3 Months or Most Recently Relevant to Health Maintenance Insurance MEDICAID [place] Advance Directives * Full Code (Latest Code Status on File) Date Activated Date Inactivated Comments 04/02/2025 2:39 PM CPR-Full Treat ment: FULL ARREST: Attempt Resuscitation/CPR wit intubation and mechanical ventilation. PRE-ARREST: Use entire range of life support measures to stabilize the patient. * Full Code Date Activated Date Inactivated Comments 11/05/2016 8:50 AM 11/05/2016 10:23 PM CPR-Full Ellen tment: FULL ARREST: Attempt Resuscitation/CPR wit intubation and mechanical ventilation. PRE-ARREST: Use entire range of life support measures to stabilize the patient. Care Teams Stock Receiver Relationship Specialty Start Date End Date Kesha Stock APRN, CNP [address] [place] [address] PCP - General Advanced Practice Nurse 04/02/25 Kesha Stock APRN, CNP [address] [place] [address] Nurse Practitioner Advanced Practice Nurse 02/13/25 Katt Buckley MD [address] [address] Consulting Physician Urology 04/20/25
[2025-05-13 14:56] VITALS: BP 164/119; PULSE 108; RESP 20; TEMP 36.5; O2SAT 99
--- NOTE | 2025-05-13 15:44 | ED.WOUNDLAC ---
HPI - Wound/Laceration General Chief Complaint: Wound/Laceration Stated Complaint: remove stitches Time Seen by Provider: 05/13/25 15:34 Source: patient and RN notes reviewed Mode of arrival: ambulatory Limitations: no limitations History of Present Illness HPI narrative: Patient presents today for suture removal. Ten days ago she had 7 sutures placed at [facility] ER in her right maravilla after cutting it on a mirror athome. Denies any difficulties with the sutures. Related Data Allergies Allergy/AdvReac Type Severity Reaction Status Date / Time No Known Allergies Allergy Mild Verified 03/08/25 20:03 PMFSH Comments At time of signature, I have reviewed and agree with nursing past medical, surgical, social and family history unless otherwise noted. Please see nursing chart for further information. There is no relevant family history pertinent to the presenting complaint Exam Narrative: GENERAL: Well-appearing, well-nourished, and in no acute distress. HEAD: Normocephalic, atraumatic. EYES: EOMI. No redness or drainage. Conjunctivae normal. ENT: Mucous membranes pink and moist. NECK: Normal AROM. CHEST: No respiratory distress. EXTREMITIES: Normal range of motion. No edema. SKIN: Warm, dry, no rash. Capillary refill normal. Normal skin turgor. Seven intact sutures to the right maravilla without redness, edema, drainage. NEURO: No focal deficits. Alert and oriented x3. Gait steady. PSYCH: Normal affect. No signs of depression or anxiety. Course Course Level of Care: Express Care Visit Vital Signs Vital signs: Vital Signs Temperature 97.7 F 05/13/25 14:56 Pulse Rate 108 H 05/13/25 14:56 Respiratory Rate 20 05/13/25 14:56 Blood Pressure 164/119 H 05/13/25 14:56 Pulse Oximetry 99 05/13/25 14:56 Oxygen Delivery Room Air 05/13/25 14:56 Temperature 97.7 F 05/13/25 14:56 Pulse Rate 108 H 05/13/25 14:56 Respiratory Rate 20 05/13/25 14:56 Blood Pressure 164/119 H 05/13/25 14:56 Pulse Oximetry 99 05/13/25 14:56 Oxygen Delivery Room Air 05/13/25 14:56 Reviewed. Patient states she ignores her high BP and doesn't take medication for it. MDM - Wound/Laceration MDM Narrative Medical decision making narrative: Any 9-year-old female patient presents today for removal of the sutures from her right maravilla the replace 10 days ago at a local ER. Exam shows 7 intact sutures without sign of infection. Sutures were removed without difficulty with 1 small area showing very slight dehiscence. One large Steri-Strips placed over this area to facilitate continued approximation. Patient has marked elevation of her blood pressure. States she tends to ignore her high BP readings. Anticipatory guidance given. Differential Diagnosis Differential diagnosis: Likely other (Suture removal, cellulitis, abscess) Critical Care Time Critical Care Time Critical Care Time: No Discharge Plan Discharge Clinical Impression: Visit for suture removal, Elevated blood pressure reading Patient Disposition: Home Condition: Stable Instructions: Stitches Removal (ED) Additional Instructions: Your sutures have been removed. There is no sign of infection, however, there is a small area where the skin is not completely closed. The Steri-Strips has been placed. This will fall off on its own. Your blood pressure is very high today. (164/119) Please follow-up with a PCP regarding this. Patient Language: Salvadorean Prescriptions: No Action cephalexin 500 mg capsule 500 mg PO Q6H 7 Days Qty: 28 0RF Follow-up/Referrals: PHYSICIAN NOT ON STAFF,NONSTAFF [Primary Care Provider] - Time of Disposition: 15:48
== END 2025-05-13 15:52 | disposition home or self-care (01) ==
PROVIDERS: Emergency Provider Nurse Practitioner
DX: S81.811D Laceration without foreign body, right lower leg, subsequent encounter (principal); W45.8XXD Other foreign body or object entering through skin, subsequent encounter; R03.0 Elevated blood-pressure reading, without diagnosis of hypertension
CPT/HCPCS: 99211; G0463